=== PATIENT | male | born 1955 | race Caucasian/White ===

== ENCOUNTER → 2016-07-16 | Outpatient (CLI) | payer OTHER ==
[~2016-07-16] MED LIST: ASP81CT PO; CATHETER FLUSH 10 ML SYR IV PRN; DICY20TA57 PO; GENT3.5O18 OS; IOHEXOL 350 MG/ML 150 ML (OMNIPAQUE 350) VIAL IV ONE; NS 100 ML (IVPB) BAG IV ONE; SIMV40TA2 PO; SMV20T PO
[2016-07-16 08:20] LABS: BLOOD UREA NITROGEN 16 MG/DL (7-18); BUN/CREATININE RATIO 19; CREATININE SERUM 0.84 MG/DL (0.60-1.30); GFR ESTIMATED > 60
--- NOTE | 2016-07-16 10:47 | Diagnostic Imaging Report ---
PROCEDURE: CT angiography of the chest with contrast. TECHNIQUE: Multiple contiguous axial images were obtained through the chest after uneventful bolus administration of intravenous contrast. Reconstructed CTA MIP acquisitions were also performed. INDICATION: History of ascending aortic aneurysm. TECHNIQUE: 125 mL 350 is administered intravenously. COMPARISON: 09/13/2014. FINDINGS: There is an ascending aortic aneurysm with a maximum caliber of 4.5 cm. There is transition to normal caliber in the aortic arch and normal caliber seen in the descending thoracic aorta. The aortic root is also dilated measuring 4.8 cm in the coronal plane and is similar to the previous exam. The thoracic aorta otherwise demonstrates normal opacification with no dissection and the great vessels appear unremarkable. The pulmonary artery demonstrates central opacification that appears normal. There is only mild opacification of the more distal pulmonary artery branches with no obvious abnormality. The heart size is normal. There is no mediastinal mass. There is no lymphadenopathy in the mediastinum, the gerry or the axilla. The lungs demonstrate no significant consolidation, mass or suspicious nodule. There is minimal atelectasis seen in the left lung base. Sections in the upper abdomen demonstrate no significant abnormality. The osseous structures appear grossly unremarkable. IMPRESSION: Stable ascending aortic aneurysm from September 2014 measuring 4.5 cm in the mid ascending aorta and 4.8 cm at the aortic root. Dictated by: Dictated on workstation # [id number]
== END ==
LOC: RAD 07:55
PROVIDERS: ATTEND Physician Assistant
DX: I25.10 Atherosclerotic heart disease of native coronary artery without angina pectoris (principal); R07.89 Other chest pain; I77.89 Other specified disorders of arteries and arterioles; E78.2 Mixed hyperlipidemia; E66.8 Other obesity; I71.2 Thoracic aortic aneurysm, without rupture
CPT/HCPCS: 36415; 71275; 82565; 84520

== ENCOUNTER 2016-09-13 03:09 | Observation (INO) | payer OTHER ==
[~2016-09-13] VITALS: Ht 175.3 cm; Wt 101.4 kg
[2016-09-13] VITALS (7 sets, daily range): BP systolic 132–145; BP diastolic 79–89
[~2016-09-13 03:09] MED LIST changes: -CATHETER FLUSH 10 ML SYR IV PRN; -IOHEXOL 350 MG/ML 150 ML (OMNIPAQUE 350) VIAL IV ONE; -NS 100 ML (IVPB) BAG IV ONE
[2016-09-13] MEDS ORDERED: RX-NITROGLYCERIN 0.4 MG TAB BTL 25'S SL ONE (03:10)
[2016-09-13] MEDS ORDERED: ASPIRIN 81 MG CHEW (CHILDREN'S ASA) ONE (03:10)
[2016-09-13 03:29] LABS: BASOPHILS % (AUTO) 0 % (0-10); EOSINOPHILS # (AUTO) 0.2 10^3/uL (0.0-0.3); EOSINOPHILS % (AUTO) 3 % (0-10); LYMPHOCYTES # (AUTO) 2.8 X 10^3 (1.0-4.0); LYMPHOCYTES % (AUTO) 46 % (12-44); MEAN CORPUSCULAR HEMOGLOBIN 30 PG (25-34); MEAN CORPUSCULAR HGB CONC 33 G/DL (32-36); MEAN CORPUSCULAR VOLUME 91 FL (80-99); MEAN PLATELET VOLUME 10.4 FL (7.4-10.4); MONOCYTES # (AUTO) 0.5 X 10^3 (0.0-1.0); MONOCYTES % (AUTO) 7 % (0-12); NEUTROPHILS # (AUTO) 2.7 X 10^3 (1.8-7.8); NEUTROPHILS % (AUTO) 44 % (42-75); PLATELET COUNT 182 10^3/uL (130-400); RED BLOOD COUNT 4.96 10^6/uL (4.35-5.85); RED CELL DISTRIBUTION WIDTH 12.6 % (10.0-14.5); WHITE BLOOD COUNT 6.2 10^3/uL (4.3-11.0)
[2016-09-13] MEDS ORDERED: RX-NITROGLYCERIN 0.4 MG TAB BTL 25'S SL PRN (03:30)
[2016-09-13] MEDS ORDERED: ASPIRIN 81 MG CHEW (CHILDREN'S ASA) PO ONE (03:30)
--- NOTE | 2016-09-13 03:41 | ED Chest Pain ---
General Stated Complaint: CP Source: patient Exam Limitations: no limitations History of Present Illness Time seen by provider: 03:13 Initial Comments Here with report of chest pain that started at about 1030 p.m. last night but got a little better and he went to bed. About a half hour ago he woke up with central chest pain that radiates to the left shoulder and is moderate in intensity. It is associated with clamminess and shortness of breath. Denies nausea or vomiting. Timing/Duration: 4-6 hours, getting worse, intermittent Severity/Quality: moderate, severe, pressure Location: central Radiation: shoulders (left) Activities at Onset: none Prior CP/Workup: cardiac cath, echocardiography, stress test ASA po UMBRELLA REPAIRER: No NTG SL UMBRELLA REPAIRER: No Associated Symptoms: No abdominal pain, No back pain, diaphoresis, No nausea/ vomiting, shortness of breath, No weakness Allergies and Home Medications Allergies Coded Allergies: No Known Drug Allergies (Unverified , 10/07/08) Home Medications Aspirin 81 Mg Chew, 81 MG PO DAILY, (Reported) Gentamicin Sulfate 3.5 Gm Oint..gm., 0 OS Q4H, #1 Ref 0 Prescribed by: SANNA HOSKINS on 12/10/10 0239 Simvastatin 40 Mg Tablet, 40 MG PO HS, (Reported) Review of Systems Constitutional: see HPI, No chills, No fever Respiratory: See HPI, Denies Wheezing Cardiovascular: Chest Pain, Denies Edema, Denies Lightheadedness Gastrointestinal: Denies Abdominal Pain, Nausea, Denies Vomiting Genitourinary: No Symptoms Reported Musculoskeletal: no symptoms reported Skin: no symptoms reported All Other Systems Reviewed Negative Unless Noted: Yes Past Thyqfwj-Ayofyt-Susdlx Hx Patient Social History Alcohol Use: Denies Use Recreational Drug Use: No (9 spoke) Smoking Status: Never a Smoker Surgeries HX Surgeries: Yes Surgeries: Coronary Stent Respiratory Hx Respiratory Disorders: No Cardiovascular Hx Cardiac Disorders: Yes Cardiac Disorders: Hypertension Neurological Hx Neurological Disorders: No Reproductive System Hx Reproductive Disorders: No Genitourinary Hx Genitourinary Disorders: No Gastrointestinal Hx Gastrointestinal Disorders: No Musculoskeletal Hx Musculoskeletal Disorders: No Endocrine Hx Endocrine Disorders: No HEENT HX ENT Disorders: No Psychosocial Hx Psychiatric Problems: No Blood Transfusions Hx Blood Disorders: No Reviewed Nursing Assessment Reviewed/Agree w Nursing PMH: Yes Family Medical History Significant Family History: No Pertinent Family Hx Physical Exam Vital Signs Vital Sign - Last 12Hours 09/13/16 03:10 Temp 96.5 Pulse 73 Resp 20 B/P (MAP) 167/118 Pulse Ox 96 O2 Delivery Room Air Capillary Refill : General Appearance: WD/WN, Mild Distress (chest pain) HEENT: PERRL/EOMI, Pharynx Normal Neck: Non Tender, Supple Respiratory: Lungs Clear, Normal Breath Sounds Cardiovascular: Regular Rate, Rhythm, No Murmur Gastrointestinal: Non Tender, Soft Extremity: Normal Range of Motion, Non Tender Neurologic/Psychiatric: Alert, Oriented x3 Skin: Normal Color, Warm/Dry Progress/Results/Core Measures Results/Orders Lab Results Laboratory Tests Test 09/13/16 03:17 Range/Units White Blood Count 6.2 4.3-11.0 10^3/uL Red Blood Count 4.96 4.35-5.85 10^6/uL Hemoglobin 15.0 13.3-17.7 G/DL Hematocrit 45 40-54 % Mean Corpuscular Volume 91 80-99 FL Mean Corpuscular Hemoglobin 30 25-34 PG Mean Corpuscular Hemoglobin Concent 33 32-36 G/DL Red Cell Distribution Width 12.6 10.0-14.5 % Platelet Count 182 130-400 10^3/uL Mean Platelet Volume 10.4 7.4-10.4 FL Neutrophils (%) (Auto) 44 42-75 % Lymphocytes (%) (Auto) 46 H 12-44 % Monocytes (%) (Auto) 7 0-12 % Eosinophils (%) (Auto) 3 0-10 % Basophils (%) (Auto) 0 0-10 % Neutrophils # (Auto) 2.7 1.8-7.8 X 10^3 Lymphocytes # (Auto) 2.8 1.0-4.0 X 10^3 Monocytes # (Auto) 0.5 0.0-1.0 X 10^3 Eosinophils # (Auto) 0.2 0.0-0.3 10^3/uL Basophils # (Auto) 0.0 0.0-0.1 10^3/uL Prothrombin Time 12.5 12.2-14.7 SEC INR Comment 1.0 0.8-1.4 Activated Partial Thromboplast Time 46 H 24-35 SEC Sodium Level 140 135-145 MMOL/L Potassium Level 4.3 3.6-5.0 MMOL/L Chloride Level 105 98-107 MMOL/L Carbon Dioxide Level 23 21-32 MMOL/L Anion Gap 12 5-14 MMOL/L Blood Urea Nitrogen 17 7-18 MG/DL Creatinine 1.19 0.60-1.30 MG/DL Estimat Glomerular Filtration Rate > 60 BUN/Creatinine Ratio 14 Glucose Level 135 H 70-105 MG/DL Calcium Level 8.9 8.5-10.1 MG/DL Magnesium Level 2.1 1.8-2.4 MG/DL Total Bilirubin 0.6 0.1-1.0 MG/DL Aspartate Amino Transf (AST/SGOT) 24 5-34 U/L Alanine Aminotransferase (ALT/SGPT) 37 0-55 U/L Alkaline Phosphatase 77 40-136 U/L Myoglobin 21.9 10.0-92.0 NG/ML Troponin I < 0.30 <0.30 NG/ML Total Protein 6.2 L 6.4-8.2 G/DL Albumin 4.1 3.2-4.5 G/DL My Orders Orders - FERNANDEZ MCKEON MD Aspirin Chewable Tablet (Baby Aspirin Ch (09/13/16 03:10) Rx-Nitroglycerin Sl Tabs (Rx-Nitrostat S (09/13/16 03:10) Cbc With Automated Diff (09/13/16 03:20) Magnesium (09/13/16 03:20) Chest 1 View, Ap/Pa Only (09/13/16 03:20) Ekg Tracing (09/13/16 03:20) Cardiac Profile 1 (09/13/16 03:20) Comprehensive Metabolic Panel (09/13/16 03:20) Myoglobin Serum (09/13/16 03:20) Protime With Inr (09/13/16 03:20) Partial Thromboplastin Time (09/13/16 03:20) O2 (09/13/16 03:20) Monitor-Rhythm Ecg Trace Only (09/13/16 03:20) Lipid Panel (09/14/16 06:00) Aspirin Chewable Tablet (Baby Aspirin Ch (09/13/16 03:30) Rx-Nitroglycerin Sl Tabs (Rx-Nitrostat S (09/13/16 03:30) Saline Lock/Iv-Start (09/13/16 03:20) Medications Given in ED Current Medications Medications Dose Ordered Sig/Daniel Route Start Time Stop Time Status Last Admin Dose Admin Aspirin 324 mg ONCE ONCE PO 09/13/16 03:30 09/13/16 03:31 DC 09/13/16 03:14 324 MG Nitroglycerin 0.4 mg PRN PRN SL 09/13/16 03:30 09/13/16 03:17 0.4 MG Vital Signs/I&O Vital Sign - Last 12Hours 09/13/16 09/13/16 03:10 03:10 Temp 96.5 Pulse 73 Resp 20 B/P (MAP) 167/118 Pulse Ox 96 O2 Delivery Room Air Room Air Progress Note : Progress Note Seen and evaluated. IV, labs, EKG and chest x-ray. ASA 324 mg by mouth. Nitroglycerin sublingual. Pain resolved after 2 nitroglycerin. Monitor patient. [id number] Farias. Admit, observation status. Patient and family agree with plan. Patient was very appreciative of admission as he was quite concerned due to the chest pain. ECG Initial ECG Impression Date: Sep 13, 2016 Initial ECG Impression Time: 03:16 Initial ECG Rate: 77 Initial ECG Rhythm: Normal Sinus Comment Sinus rhythm with first-degree AV block. No evidence of ST elevation MO. Overall similar findings to previous of 07/26/14. Interpreted by me. Departure Communication Time/Spoke to Admitting Phy: 04:44 Time/Spoke to Consulting Physi: 05:00 Impression Impression: Primary Impression: Chest pain Qualified Codes: R07.9 - Chest pain, unspecified Disposition: 09 ADMITTED INPATIENT Condition: Stable Decision to Admit Reason: Admit from ER (General) Decision to Admit/Date: Sep 13, 2016 Time/Decision to Admit Time: 04:44 Departure-Patient Inst. Referrals: JESSENIA HARDWICK MD (PCP) Primary Care Physician FERNANDEZ MCKEON MD Sep 13, 2016 03:41
[2016-09-13 03:44] LABS: PROTHROMBIN TIME PATIENT 12.5 SEC (12.2-14.7)
[2016-09-13 03:56] LABS: ALANINE AMINOTRANSFERASE 37 U/L (0-55); ALBUMIN 4.1 G/DL (3.2-4.5); ASPARTATE AMINO TRANSFERASE 24 U/L (5-34); BILIRUBIN,TOTAL 0.6 MG/DL (0.1-1.0); BLOOD UREA NITROGEN 17 MG/DL (7-18); BUN/CREATININE RATIO 14; CALCIUM 8.9 MG/DL (8.5-10.1); CARBON DIOXIDE 23 MMOL/L (21-32); CREATININE SERUM 1.19 MG/DL (0.60-1.30); GFR ESTIMATED > 60; GLUCOSE 135 MG/DL (70-105); TOTAL PROTEIN 6.2 G/DL (6.4-8.2)
[2016-09-13 04:04] LABS: ANION GAP 12 MMOL/L (5-14); CHLORIDE 105 MMOL/L (98-107); MAGNESIUM 2.1 MG/DL (1.8-2.4); POTASSIUM 4.3 MMOL/L (3.6-5.0); SODIUM 140 MMOL/L (135-145)
[2016-09-13 04:07] LABS: MYOGLOBIN SERUM 21.9 NG/ML (10.0-92.0)
[2016-09-13] MEDS ORDERED: NS IV 1000 ML 1,000 ML IV SCH (05:41)
[2016-09-13] MEDS ORDERED: PATIENT MAY USE OWN MEDS, ALL PO SCH (05:45)
[2016-09-13] MEDS ORDERED: morphine INJ 10 MG/ML 1ML (SYR OR VIAL) IVP PRN (05:45)
[2016-09-13] MEDS ORDERED: NITROGLYCERIN SUBLINGUAL 0.4 MG TAB (NITROSTAT) SL PRN (05:45)
--- NOTE | 2016-09-13 07:38 | Diagnostic Imaging Report ---
INDICATION: Chest pain COMPARISON: CT chest dated 07/16/2016 FINDINGS: Single frontal view of the chest demonstrates normal heart size and pulmonary vascularity. The lungs are well aerated and clear. No large pleural effusion or pneumothorax is seen. The visualized osseous structures show no acute abnormalities. IMPRESSION: 1. No acute cardiopulmonary process. Dictated by: Dictated on workstation # [id number]
--- NOTE | 2016-09-13 08:46 | Consultation-Cardiology ---
HPI-Cardiology Cardiology Consultation Date of Consultation 09/13/16 Date of Admission Time Seen by Provider: 08:41 Indication: chest pain HPI 61 years old gentleman with history of hypertension, family history of heart disease, woke up early in the morning with sudden onset of retrosternal chest pain described it as achiness in the retrosternal area radiating to the left side and left shoulder and arm. He denied any palpitation, syncope or near syncopal episodes. Denied any claudication. Patient is feeling better, reporting improvement of his chest pain after receiving one sublingual nitroglycerin, had some headache which has resolved at this point Home Medications & Allergies Allergies: Coded Allergies: No Known Drug Allergies (Unverified , 10/07/08) Home Medication List Reviewed: Yes FXW-Jivuih-Qnkwoe Hx Patient Social History Marital Status: Alcohol Use: Denies Use Recreational Drug Use: No (9 spoke) Smoking Status: Never a Smoker Recent Foreign Travel: No Recent Infectious Disease Expo: No Recent Hopitalizations: No Physical Abuse Screen: No Sexual Abuse: No Past Medical History past medical history as discussed below Family Medical History Significant Family History: No Pertinent Family Hx Family History: 19 FATHER Cardiovascular disease 19 MOTHER FH: breast cancer G8 SISTER Diabetes mellitus Hypertension G8 SISTER Diabetes mellitus G8 SISTER Diabetes mellitus Constitutional: no symptoms reported, see HPI EENTM: no symptoms reported, see HPI Respiratory: see HPI, No cough, No dyspnea on exertion, No hemoptysis, No orthopnea, No phlegm, No short of breath, No stridor, No wheezing, No other Cardiovascular: see HPI, chest pain, No edema, No Hx of Intervention, No palpitations, No syncope, No vascular heart diseas, No other Gastrointestinal: no symptoms reported, see HPI Genitourinary: no symptoms reported, see HPI Musculoskeletal: no symptoms reported, see HPI Skin: no symptoms reported, see HPI Psychiatric/Neurological: No Symptoms Reported, See HPI Reviewed Test Results Reviewed Test Results Lab Laboratory Tests Test 09/13/16 03:17 Range/Units White Blood Count 6.2 4.3-11.0 10^3/uL Red Blood Count 4.96 4.35-5.85 10^6/uL Hemoglobin 15.0 13.3-17.7 G/DL Hematocrit 45 40-54 % Mean Corpuscular Volume 91 80-99 FL Mean Corpuscular Hemoglobin 30 25-34 PG Mean Corpuscular Hemoglobin Concent 33 32-36 G/DL Red Cell Distribution Width 12.6 10.0-14.5 % Platelet Count 182 130-400 10^3/uL Mean Platelet Volume 10.4 7.4-10.4 FL Neutrophils (%) (Auto) 44 42-75 % Lymphocytes (%) (Auto) 46 H 12-44 % Monocytes (%) (Auto) 7 0-12 % Eosinophils (%) (Auto) 3 0-10 % Basophils (%) (Auto) 0 0-10 % Neutrophils # (Auto) 2.7 1.8-7.8 X 10^3 Lymphocytes # (Auto) 2.8 1.0-4.0 X 10^3 Monocytes # (Auto) 0.5 0.0-1.0 X 10^3 Eosinophils # (Auto) 0.2 0.0-0.3 10^3/uL Basophils # (Auto) 0.0 0.0-0.1 10^3/uL Prothrombin Time 12.5 12.2-14.7 SEC INR Comment 1.0 0.8-1.4 Activated Partial Thromboplast Time 46 H 24-35 SEC Sodium Level 140 135-145 MMOL/L Potassium Level 4.3 3.6-5.0 MMOL/L Chloride Level 105 98-107 MMOL/L Carbon Dioxide Level 23 21-32 MMOL/L Anion Gap 12 5-14 MMOL/L Blood Urea Nitrogen 17 7-18 MG/DL Creatinine 1.19 0.60-1.30 MG/DL Estimat Glomerular Filtration Rate > 60 BUN/Creatinine Ratio 14 Glucose Level 135 H 70-105 MG/DL Calcium Level 8.9 8.5-10.1 MG/DL Magnesium Level 2.1 1.8-2.4 MG/DL Total Bilirubin 0.6 0.1-1.0 MG/DL Aspartate Amino Transf (AST/SGOT) 24 5-34 U/L Alanine Aminotransferase (ALT/SGPT) 37 0-55 U/L Alkaline Phosphatase 77 40-136 U/L Myoglobin 21.9 10.0-92.0 NG/ML Troponin I < 0.30 <0.30 NG/ML Total Protein 6.2 L 6.4-8.2 G/DL Albumin 4.1 3.2-4.5 G/DL Physical Exam Vital Signs Vital Sign - Last 12Hours 09/13/16 03:10 Temp 96.5 Pulse 73 Resp 20 B/P (MAP) 167/118 Pulse Ox 96 O2 Delivery Room Air Capillary Refill : Less Than 3 Seconds General Appearance: No Apparent Distress, WD/WN Eyes: Bilateral Eye EOMI, Bilateral Eye Normal Inspection, Bilateral Eye PERRL HEENT: PERRL/EOMI, TMs Normal, Normal ENT Inspection, Pharynx Normal Neck: Full Range of Motion, Normal Inspection, Non Tender, Supple, Carotid Bruit Respiratory: Chest Non Tender, Lungs Clear, Normal Breath Sounds, No Accessory Muscle Use, No Respiratory Distress Cardiovascular: Regular Rate, Rhythm, No Edema, No Gallop, No JVD, No Murmur, Normal Peripheral Pulses Gastrointestinal: Normal Bowel Sounds, No Organomegaly, No Pulsatile Mass, Non Tender, Soft Back: Normal Inspection, No CVA Tenderness, No Vertebral Tenderness Extremity: Normal Capillary Refill, Normal Inspection, Normal Range of Motion, Non Tender, No Calf Tenderness, No Pedal Edema Neurologic/Psychiatric: Alert, Oriented x3, No Motor/Sensory Deficits, Normal Mood/Affect Skin: Normal Color, Warm/Dry Lymphatic: No Adenopathy A/P-Cardiology Admission Diagnosis Chest pain nonspecific etiology Hypertension Headache Family history of heart disease Assessment/Plan Chest pain nonspecific etiology, resolved, responded to nitroglycerin, patient had a cardiac catheterization 2010 reported as minor disease, had a stress test in September 2014 which was normal, I will continue monitoring him and planning for exercise stress test today. Hypertension, blood pressure is well controlled at this time Hyperlipidemia, has been on simvastatin. Continue to monitor Headache. Reporting improvement. Family history of heart disease. Clinical Quality Measures AMI/AHF: ASA po Prior to arrival: No DVT/VTE Risk/Contraindication: Risk Factor Score Per Nursin RFS Level Per Nursing on Admit: 3=High JESSENIA HARDWICK MD Sep 13, 2016 08:46
[2016-09-13 09:34] LABS: CREATINE KINASE 58 U/L (30-200)
[2016-09-13 09:38] LABS: CHOLESTEROL 183 MG/DL (< 200); DIRECT LDL 77 MG/DL (1-129); TRIGLYCERIDES 152 MG/DL (<150); VLDL CHOLESTEROL 30 MG/DL (5-40)
--- NOTE | 2016-09-13 11:09 | Short Stay Summary-Hospitalist ---
HPI History of Present Illness: HPI/Chief Complaint The patient is a 61-year-old white male who was admitted from the emergency room at approximately 0300 this morning with a chief complaint of mid chest pressure. The patient reported that He had felt ill in a nonspecific sort of mild way as he went to bed about 1030. He was awakened from sleep with chest pressure and diaphoresis. He was unaware of any fever. There is no cough. He had a previous workup elsewhere in approximately 2013. This was stated to be negative. He has a family history of early heart disease and his father at age 59 after multiple myocardial infarctions. He has never smoked. Rarely takes alcohol. He reports that he is known to have an elevation in the bad cholesterol. He has not been hypertensive. Source: patient Exam Limitations: no limitations Date Seen 09/13/16 Time Seen by Provider: 11:04 Attending Physician Anastacia PCP Referring Physician Date of Admission Sep 13, 2016 at 05:05 Home Medications & Allergies Home Medications Reviewed patient Home Medication Reconciliation Form Allergies Allergies Coded Allergies No Known Drug Allergies (Unverified10/07/08) Past Wxorwtf-Onfgbw-Bbyovd Hx Patient Social History Marrital Status: Alcohol Use: Denies Use Recreational Drug Use: No (9 spoke) Smoking Status: Never a Smoker Physical Abuse Screen: No Sexual Abuse: No Recent Foreign Travel: No Contact w/other who traveled: No Recent Hopitalizations: No Recent Infectious Disease Expo: No Seasonal Allergies Seasonal Allergies: No Surgeries HX Surgeries: Yes Surgeries: Coronary Stent Respiratory Hx Respiratory Disorders: No Cardiovascular Hx Cardiovascular Disorders: Yes Cardiac Disorders: Hypertension Neurological Hx Neurological Disorders: No Reproductive System Hx Reproductive Disorders: No Genitourinary Hx Genitourinary Disorders: No Gastrointestinal Hx Gastrointestinal Disorders: No Musculoskeletal Hx Musculoskeletal Disorders: No Endocrine Hx Endocrine Disorders: No HEENT HX ENT Disorders: No Psychosocial Hx Psychiatric Problems: No Blood Transfusions Hx Blood Disorders: No Reviewed Nursing Assessment Reviewed/Agree w Nursing PMH: Yes Family Medical History Significant Family History: No Pertinent Family Hx Family Hx: Cardiovascular disease 19 FATHER Diabetes mellitus G8 SISTER G8 SISTER G8 SISTER FH: breast cancer 19 MOTHER Hypertension G8 SISTER Review of Systems Time Seen by Provider: 10:55 Constitutional: see HPI EENTM: no symptoms reported Cardiovascular: see HPI, chest pain Gastrointestinal: no symptoms reported Genitourinary: no symptoms reported Musculoskeletal: no symptoms reported Skin: other Psychiatric/Neurological: No Symptoms Reported Physical Exam Physical Exam Vital Signs Vital Sign - Last 12Hours 09/13/16 03:10 Temp 96.5 Pulse 73 Resp 20 B/P (MAP) 167/118 Pulse Ox 96 O2 Delivery Room Air Capillary Refill : Less Than 3 Seconds General Appearance: No Apparent Distress, WD/WN Eyes: Bilateral Eye Normal Inspection HEENT: Normal ENT Inspection Neck: Normal Inspection Respiratory: Chest Non Tender, Lungs Clear, Normal Breath Sounds, No Accessory Muscle Use, No Respiratory Distress Cardiovascular: Regular Rate, Rhythm, No Edema, No Gallop, No JVD, No Murmur, Normal Peripheral Pulses Back: Normal Inspection, No CVA Tenderness, No Vertebral Tenderness Extremity: Normal Capillary Refill, Normal Inspection, Normal Range of Motion, Non Tender, No Calf Tenderness, No Pedal Edema Neurologic/Psychiatric: Alert, Oriented x3, No Motor/Sensory Deficits, Normal Mood/Affect Skin: Normal Color, Warm/Dry Lymphatic: No Adenopathy Comments Multiple rubbery subcutaneous nodules consistent with lipomata are noted on the forearms and belly Results Results/Procedures Lab Laboratory Tests 09/13/16 03:17 Short Stay Diagnosis Discharge Diagnosis-Short Stay Admission Diagnosis Chest pain rule out [place]. Final Discharge Diagnosis Chest pain not myocardial Conclusion Plan Discharge home. Return to work tomorrow. Clinical Quality Measures AMI/AHF: ASA po Prior to arrival: No DVT/VTE Risk/Contraindication: Risk Factor Score Per Nursin RFS Level Per Nursing on Admit: 3=High FRANK FAIR MD Sep 13, 2016 11:09
--- NOTE | 2016-09-13 11:14 | Discharge Instructions ---
Discharge Instructions Patient Instructions Goal/Follow Up Appt: Medications as on the discharge list Return to work tomorrow [facility] to [facility]: If recurrence of pain Activity & Diet Discharge Diet: Cardiac Diet Activity as Tolerated: Yes FRANK FAIR MD Sep 13, 2016 11:14
--- NOTE | 2016-09-13 11:56 | STRESS TEST ---
DATE OF SERVICE: 09/13/2016 EXERCISE STRESS ECHOCARDIOGRAM REFERRING PHYSICIAN: Dr. Farias INDICATION: Chest pain. FINDINGS: Baseline heart rate is 72. Baseline blood pressure 149/84. Baseline EKG is sinus rhythm with no ischemic changes. SUMMARY: The patient started exercising with the baseline heart rate, blood pressure and EKG mentioned above. Then, the patient was able to exercise for a total of 6 minutes and 30 seconds on standard Gregg protocol, achieving maximum heart rate of 137, which is 86% of maximum expected heart rate. With peak exercise level blood pressure was 233/89. EKG was showing minimal nondiagnostic changes. During recovery, heart rate and blood pressure returned to baseline. EKG returned to baseline. Echocardiographic images were acquired after injection of Optison for better resolution. It was reviewed in the parasternal long axis and parasternal short axis, apical four chamber and apical two chamber views. Review of the images showed normal left ventricular size with normal contractility with no ischemic changes. CONCLUSION: 1. Fair exercise tolerance a total of 6 minutes 30 seconds on standard Gregg protocol achieving 86% of maximum expected heart rate. 2. Appropriate heart rate and blood pressure response to exercise, returned to baseline during recovery. 3. Severe hypertensive response to exercise, returned to baseline during recovery. 4. Normal echocardiographic images at rest and with peak stress level. No ischemic changes with normal ejection fraction. Job ID: [id number] DocumentID: [id number] Dictated Date: 09/13/2016 11:19:20 [employer] Date: 09/13/2016 11:44:28 Dictated By: JESSENIA HARDWICK MD
--- NOTE | 2016-09-13 13:24 | ECHOCARDIOGRAPHY REPORT ---
DATE OF SERVICE: 09/13/2016 2-D ECHOCARDIOGRAM REFERRING PHYSICIAN: Dr. Partha Farias MEASUREMENT: LVID end diastolic 4.5, IVS thickness 1.2, LVPW thickness 1.2 cm, left atrial diameter 3.4 and ejection fraction 60%. FINDINGS: 1. Technical quality is good. 2. The left ventricle is normal in size with normal contractility, systolic function appeared to be normal, estimated ejection fraction 60%. 3. The left atrium is normal in size. No clot or thrombus were seen within the left atrium. 4. The right atrium and right ventricle are normal in size. No clot or thrombus were seen within the right side. 5. Mitral valve is normal in morphology with mild mitral regurgitation noted by color Doppler flow. No mitral valve prolapse. No mitral valve stenosis. 6. Aortic valve is trileaflet with normal opening and closing pattern. No significant aortic stenosis or regurgitation was seen. 7. Tricuspid valve is normal in morphology with mild tricuspid regurgitation noted by color Doppler flow. Doppler across the tricuspid valve estimated pulmonary artery pressure of 12+ right atrial pressure. 8. Pulmonic valve is functioning normally. 9. No pericardial effusion. CONCLUSION: 1. Normal left ventricular size and systolic function. Estimated ejection fraction 60%. 2. Mild mitral and tricuspid regurgitation. 3. Estimated pulmonary artery pressure of 20 mmHg. Job ID: [id number] DocumentID: [id number] Dictated Date: 09/13/2016 11:15:20 Doctor Of Nurse Anesthesia Date: 09/13/2016 12:17:12 Dictated By: JESSENIA HARDWICK MD
[2016-09-14] MEDS ORDERED: ASPIRIN E.C. 325 MG (ECOTRIN) TABLET PO SCH (09:00)
== END 2016-09-13 11:13 | disposition home or self-care (01) ==
LOC: EDUNIT# 03:09 → ER 03:10 → UNDOADMOB 05:05 → 4TH 05:05 → UNDODISOB 11:55
PROVIDERS: ADMIT Internal Medicine; ATTEND Internal Medicine
DX: R07.9 Chest pain, unspecified (principal); I10 Essential (primary) hypertension; E78.5 Hyperlipidemia, unspecified; R51 Headache; Z82.49 Family history of ischemic heart disease and other diseases of the circulatory system; I44.0 Atrioventricular block, first degree; Z95.5 Presence of coronary angioplasty implant and graft
CPT/HCPCS: 36415; 71010; 80053; 80061; 82550; 83735; 83874; 84484; 85025; 85610; 85730; 93005; 93041; 93306; G0378

== ENCOUNTER → 2017-05-18 | Outpatient (CLI) | payer OTHER ==
[~2017-05-18] MED LIST changes: +ASPI-983 PO; +DEXA4TAB PO; +METO-370 PO; +RT-ALBUTEROL SULF 2.5 MG/3 ML PRE-MIX VIAL INH ONE; +SIMV40TA4 PO
== END ==
LOC: RT 07:59
PROVIDERS: ATTEND Family Medicine
DX: R05 Cough (principal)
CPT/HCPCS: 94060; 94726

== ENCOUNTER → 2017-06-14 | Outpatient (CLI) | payer OTHER ==
[~2017-06-14] MED LIST changes: -RT-ALBUTEROL SULF 2.5 MG/3 ML PRE-MIX VIAL INH ONE
[2017-06-14 10:19] LABS: CHOLESTEROL 162 MG/DL (< 200); HDL CHOLESTEROL 46 MG/DL (40-60); TRIGLYCERIDES 142 MG/DL (<150); VLDL CHOLESTEROL 28 MG/DL (5-40)
== END ==
LOC: LAB 09:46
PROVIDERS: ATTEND Internal Medicine Cardiovascular Disease
DX: I25.10 Atherosclerotic heart disease of native coronary artery without angina pectoris (principal); R07.9 Chest pain, unspecified; E78.5 Hyperlipidemia, unspecified; E66.9 Obesity, unspecified
CPT/HCPCS: 36415; 80061

== ENCOUNTER 2020-08-02 13:09 | Emergency (ER) | payer SELFPAY ==
[~2020-08-02] VITALS: Ht 175 cm; Wt 94.8 kg
[~2020-08-02 13:09] MED LIST changes: +ASPI-1238 PO; -ASPI-983 PO; -METO-370 PO; +METO50TA7 PO; +SIMV40TA25 PO; -SIMV40TA4 PO
[2020-08-02] MEDS ORDERED: NS IV 1000 ML 1,000 ML ONE (13:24)
[2020-08-02] MEDS ORDERED: RX-ALBUTEROL INHALER (VENTOLIN HFA) 18 GM IH ONE (13:29)
[2020-08-02] MEDS ORDERED: LOPERAMIDE 2 MG (IMODIUM) TABLET ONE ×2 (13:29→13:31)
[2020-08-02] MEDS ORDERED: LOPERAMIDE 2 MG (IMODIUM) TABLET PO ONE ×2 (13:45)
[2020-08-02] MEDS ORDERED: RT-ALBUTEROL INHALER HFA (VENTOLIN HFA) 18 GM IH ONE (13:45)
[2020-08-02 14:05] LABS: BASOPHILS % (AUTO) 0 % (0-10); EOSINOPHILS % (AUTO) 0 % (0-10); HEMATOCRIT 48 % (40-54); HEMOGLOBIN 16.3 g/dL (13.3-17.7); LYMPHOCYTES # (AUTO) 0.9 10^3/uL (1.0-4.0); LYMPHOCYTES % (AUTO) 18 % (12-44); MEAN CORPUSCULAR HEMOGLOBIN 31 pg (25-34); MEAN CORPUSCULAR HGB CONC 34 g/dL (32-36); MEAN CORPUSCULAR VOLUME 92 fL (80-99); MONOCYTES # (AUTO) 0.4 10^3/uL (0.0-1.0); MONOCYTES % (AUTO) 8 % (0-12); NEUTROPHILS # (AUTO) 3.9 10^3/uL (1.8-7.8); NEUTROPHILS % (AUTO) 74 % (42-75); PLATELET COUNT 180 10^3/uL (130-400); WHITE BLOOD COUNT 5.2 10^3/uL (4.3-11.0)
[2020-08-02 14:17] LABS: ALBUMIN 4.4 GM/DL (3.2-4.5)
[2020-08-02 14:18] LABS: CHLORIDE 99 MMOL/L (98-107); POTASSIUM 4.3 MMOL/L (3.6-5.0); SODIUM 137 MMOL/L (135-145)
[2020-08-02 14:20] LABS: GLUCOSE 158 MG/DL (70-105)
[2020-08-02 14:21] LABS: CARBON DIOXIDE 25 MMOL/L (21-32)
[2020-08-02 14:24] LABS: ALKALINE PHOSPHATASE 89 U/L (40-136); CREATININE SERUM 1.03 MG/DL (0.60-1.30); GFR ESTIMATED > 60
[2020-08-02 14:25] LABS: BUN/CREATININE RATIO 12
[2020-08-02 14:27] LABS: ALANINE AMINOTRANSFERASE 39 U/L (0-55)
[2020-08-02] MEDS ORDERED: BENZONATATE 100 MG (TESSALON) CAPSULE PO ONE (14:45)
--- NOTE | 2020-08-02 14:58 | Diagnostic Imaging Report ---
Indication: Dyspnea with chills and generalized malaise. Comparison: 05/08/2017. Discussion: Single portable upright view of the chest was obtained. Pleural thickening or scarring within the left lung base is stable. Normal heart size. No consolidation, pleural fluid, or pneumothorax identified. No osseous abnormality. Impression: 1. Negative portable chest. Dictated by: Dictated on workstation # [id number]
[2020-08-02] MEDS ORDERED: NS 100 ML (IVPB) BAG IV ONE (15:15)
[2020-08-02] MEDS ORDERED: HOLD METFORMIN - RECEIVED CONTRAST 20 ML VIAL IV SCH (15:15)
[2020-08-02] MEDS ORDERED: IOHEXOL 350 MG/ML 100 ML (OMNIPAQUE 350) VIAL IV ONE (15:15)
--- NOTE | 2020-08-02 15:44 | Diagnostic Imaging Report ---
Procedure: CT angiography of the chest with contrast. Technique: Multiple contiguous axial images were obtained through the chest after uneventful bolus administration of intravenous contrast. 3D reconstructed CTA MIP acquisitions were also performed. Auto Exposure Controls were utilized during the CT exam to meet ALARA standards for radiation dose reduction. Indication: Dyspnea. Comparison: 07/16/2016, chest x-ray earlier today. Discussion: Aneurysmal dilatation of the ascending aorta measuring 4.5 cm is stable. No pulmonary embolus identified. Pulmonary arteries are not dilated. Normal heart size. No pleural or pericardial fluid. The visualized upper abdomen is unremarkable. No adenopathy. Atelectasis or patchy infiltrate noted within the periphery of the right upper lobe. Additional groundglass infiltrates within the bilateral lung bases, again atelectasis or pneumonia. No solid pulmonary lesion. No osseous abnormality. Impression: 1. No pulmonary embolus identified. 2. Stable aneurysmal dilatation of the ascending aorta. 3. Scattered foci of groundglass infiltrate within the right upper lobe and bilateral lung bases, early pneumonia not excluded. Dictated by: Dictated on workstation # [id number]
[2020-08-02] MEDS ORDERED: AZITHROMYCIN 250 MG TAB (ZITHROMAX) PO ONE (16:15)
[2020-08-02] MEDS ORDERED: AZIT250T12 PO (16:49)
[2020-08-02] MEDS ORDERED: BENZ100C18 PO (16:49)
--- NOTE | 2020-08-02 16:50 | ED General ---
General Chief Complaint: Respiratory Problems Stated Complaint: COVID + COUGH/CHEST TIGHT, CAN'T TASTE, CLAMMY Nursing Triage Note: PT PRESENTS TO ED VIA POV FROM HOME WITH COMPLAINTS OF SOA, DIAHRREA, CHILLS, MALAISE, AND DECREASED APPETITE. PT REPORTS HE FIRST STARTED GETTING S/S AROUND 07/23 AND WAS DIAGNOSED WITH COVID ON 07/28. Nursing Sepsis Screen: Possible Sepsis Risk Source of Information: Patient Exam Limitations: No Limitations Allergies and Home Medications Allergies Coded Allergies: No Known Drug Allergies (Unverified , 10/07/08) Home Medications Aspirin 81 Mg Tablet.dr, 81 MG PO DAILY, (Reported) Dexamethasone 4 Mg Tablet, 4 MG PO DAILY Prescribed by: BRANDIE LAMB on 05/11/17 0924 Metoprolol Succinate 50 Mg Tab.er.24h, 50 MG PO DAILY, (Reported) Simvastatin 40 Mg Tablet, 40 MG PO DAILY, (Reported) Past Qumgfqw-Bddsfo-Tieuve Hx Patient Social History Alcohol Use: Rarely Uses Smoking Status: Never a Smoker Recent Infectious Disease Expo: No Recent Hopitalizations: No Immunizations Up To Date Tetanus Booster (TDap): Unknown PED Vaccines UTD: No Seasonal Allergies Seasonal Allergies: No Past Medical History Surgeries: Yes Adenoidectomy, Appendectomy, Coronary Stent, Tonsillectomy Respiratory: No Cardiac: Yes (CARDIAC CATH) Hypertension Neurological: No Reproductive Disorders: No Genitourinary: No Gastrointestinal: No Musculoskeletal: No Endocrine: Yes Diabetes, Non-Insulin dep HEENT: No Cancer: No Psychosocial: No Integumentary: No (MULTIPLE FATTY TUMORS) Blood Disorders: No Family Medical History Cardiovascular disease 19 FATHER Diabetes mellitus G8 SISTER G8 SISTER G8 SISTER FH: breast cancer 19 MOTHER Hypertension G8 SISTER No Pertinent Family Hx Physical Exam Vital Signs Vital Signs - First Documented 08/02/20 13:40 Temp 37.9 Pulse 115 Resp 20 B/P (MAP) 155/99 (117) Pulse Ox 95 Capillary Refill : Less Than 3 Seconds Height, Weight, BMI Height: 5'9.00" Weight: 225lbs. 0.0oz. 102.528282li; 30.00 BMI Method:Stated Focused Exam Lactate Level 08/02/20 13:57: Lactic Acid Level 3.13*H Lactic Acid Level Laboratory Tests Test 08/02/20 13:57 Lactic Acid Level 3.13 MMOL/L (0.50-2.00) *H Progress/Results/Core Measures Suspected Sepsis Recent Fever Within 48 Hours: Yes Infection Criteria Present: Suspected New Infection New/Unexplained Altered Menta: No Sepsis Screen: Possible Sepsis Risk SIRS Temperature: Pulse: 115 Respiratory Rate: 20 Laboratory Tests 08/02/20 13:57: White Blood Count 5.2 Blood Pressure 155 /99 Mean: 117 08/02/20 13:57: Lactic Acid Level 3.13*H Laboratory Tests 08/02/20 13:57: Creatinine 1.03, Platelet Count 180, Total Bilirubin 1.0 Results/Orders Lab Results Laboratory Tests Test 08/02/20 13:57 Range/Units White Blood Count 5.2 4.3-11.0 10^3/uL Red Blood Count 5.26 4.30-5.52 10^6/uL Hemoglobin 16.3 13.3-17.7 g/dL Hematocrit 48 40-54 % Mean Corpuscular Volume 92 80-99 fL Mean Corpuscular Hemoglobin 31 25-34 pg Mean Corpuscular Hemoglobin Concent 34 32-36 g/dL Red Cell Distribution Width 11.9 10.0-14.5 % Platelet Count 180 130-400 10^3/uL Mean Platelet Volume 11.0 9.0-12.2 fL Immature Granulocyte % (Auto) 0 % Neutrophils (%) (Auto) 74 42-75 % Lymphocytes (%) (Auto) 18 12-44 % Monocytes (%) (Auto) 8 0-12 % Eosinophils (%) (Auto) 0 0-10 % Basophils (%) (Auto) 0 0-10 % Neutrophils # (Auto) 3.9 1.8-7.8 10^3/uL Lymphocytes # (Auto) 0.9 L 1.0-4.0 10^3/uL Monocytes # (Auto) 0.4 0.0-1.0 10^3/uL Eosinophils # (Auto) 0.0 0.0-0.3 10^3/uL Basophils # (Auto) 0.0 0.0-0.1 10^3/uL Immature Granulocyte # (Auto) 0.0 0.0-0.1 10^3/uL D-Dimer 0.52 H 0.00-0.49 UG/ML Sodium Level 137 135-145 MMOL/L Potassium Level 4.3 3.6-5.0 MMOL/L Chloride Level 99 98-107 MMOL/L Carbon Dioxide Level 25 21-32 MMOL/L Anion Gap 13 5-14 MMOL/L Blood Urea Nitrogen 12 7-18 MG/DL Creatinine 1.03 0.60-1.30 MG/DL Estimat Glomerular Filtration Rate > 60 BUN/Creatinine Ratio 12 Glucose Level 158 H 70-105 MG/DL Lactic Acid Level 3.13 *H 0.50-2.00 MMOL/L Calcium Level 9.0 8.5-10.1 MG/DL Corrected Calcium 8.7 8.5-10.1 MG/DL Total Bilirubin 1.0 0.1-1.0 MG/DL Aspartate Amino Transf (AST/SGOT) 40 H 5-34 U/L Alanine Aminotransferase (ALT/SGPT) 39 0-55 U/L Alkaline Phosphatase 89 40-136 U/L Lactate Dehydrogenase 227 H 125-220 U/L C-Reactive Protein High Sensitivity 1.04 H 0.00-0.50 MG/DL Total Protein 7.0 6.4-8.2 GM/DL Albumin 4.4 3.2-4.5 GM/DL Procalcitonin 0.09 <0.10 NG/ML My Orders Orders - PEYTON CAZARES MD Cbc With Automated Diff (08/02/20 13:18) Comprehensive Metabolic Panel (08/02/20 13:18) Fibrin Degradation Products (08/02/20 13:18) Procalcitonin (Pct) (08/02/20 13:18) Hs C Reactive Protein (08/02/20 13:18) LDH (08/02/20 13:18) Chest 1 View, Ap/Pa Only (08/02/20 13:18) Ns Iv 1000 Ml (Sodium Chloride 0.9%) (08/02/20 13:24) Rx-Albuterol Inhaler (Rx-Ventolin Hfa) (08/02/20 13:29) Loperamide Tablet (Imodium Tablet) (08/02/20 13:45) Albuterol Inhaler (Ventolin Hfa) (08/02/20 13:45) Loperamide Tablet (Imodium Tablet) (08/02/20 13:45) Loperamide Tablet (Imodium Tablet) (08/02/20 13:29) Blood Culture (08/02/20 13:39) Sputum Culture (08/02/20 13:39) Vital Signs Adult Sepsis Patie Q15M (08/02/20 13:39) O2 (08/02/20 13:39) Remove Rings In Anticipation O (08/02/20 13:39) Lactic Acid Analyzer (08/02/20 13:39) Loperamide Tablet (Imodium Tablet) (08/02/20 13:31) Benzonatate Capsule (Tessalon Perles) (08/02/20 14:45) Ct Angio Chest W (08/02/20 15:06) Iohexol Injection (Omnipaque 350 Mg/Ml 1 (08/02/20 15:15) Received Contrast (Hold Metformin- Contr (08/02/20 15:15) Ns (Ivpb) (Sodium Chloride 0.9% Ivpb Bag (08/02/20 15:15) Azithromycin Tablet (Zithromax Tablet) (08/02/20 16:15) Medications Given in ED Current Medications Medications Dose Ordered Sig/Daniel Route Start Time Stop Time Status Last Admin Dose Admin Albuterol Sulfate ONCE ONCE IH 08/02/20 13:45 08/02/20 13:46 DC 08/02/20 13:45 18 GM Benzonatate 200 mg ONCE ONCE PO 08/02/20 14:45 08/02/20 14:46 DC 08/02/20 14:49 200 MG Iohexol 100 ml ONCE ONCE IV 08/02/20 15:15 08/02/20 15:16 DC 08/02/20 15:34 81 ML Loperamide HCl 2 mg ONCE ONCE PO 08/02/20 13:45 08/02/20 13:46 DC 08/02/20 13:43 4 MG Sodium Chloride 100 ml ONCE ONCE IV 08/02/20 15:15 08/02/20 15:16 DC 08/02/20 15:34 80 ML Sodium Chloride 1,000 ml @ STK-MED ONCE .ROUTE 08/02/20 13:24 08/02/20 13:32 DC 08/02/20 14:12 999 MLS/HR Vital Signs/I&O 08/02/20 13:40 Temp 37.9 Pulse 115 Resp 20 B/P (MAP) 155/99 (117) Pulse Ox 95 Capillary Refill : Less Than 3 Seconds Blood Pressure Mean: 117 Departure Impression Primary Impression: COVID-19 Additional Impressions: Diarrhea Qualified Codes: R19.7 - Diarrhea, unspecified Pulmonary infiltrate Disposition: 01 HOME, SELF-CARE Condition: Improved Departure-Patient Inst. Decision time for Depature: 16:47 Referrals: BRANDIE LAMB MD (PCP/Family) Primary Care Physician Patient Instructions: COVID-19 Overview Add. Discharge Instructions: Drink plenty of clear liquids. Pedialyte or the generic equivalent would be ideal for rehydration. Avoid dairy products or fatty or greasy foods until your diarrhea has resolved. Use Imodium per package instructions for further episodes of diarrhea. Use Tessalon Perles (benzonatate) as directed for cough. Complete your azithromycin antibiotic as prescribed. Take your next dose tomorrow evening. Call with questions or concerns. Return to the ER if you have worsening symptoms. Contact the health department on Tuesday for further instructions regarding quarantine. Otherwise stay in quarantine until you are cleared by the health department since you are still symptomatic. All discharge instructions reviewed with patient and/or family. Voiced understanding. Scripts Azithromycin (Azithromycin) 250 Mg Tablet 250 MG PO DAILY, #4 TAB Prov: PEYTON CAZARES MD 08/02/20 Benzonatate (TESSALON PERLES) 100 Mg Capsule 200 MG PO TID PRN for COUGH, #20 CAP Prov: PEYTON CAZARES MD 08/02/20 PEYTON CAZARES MD August 02, 2020 16:50
[2020-08-02 17:05] VITALS: BP 141/76
== END 2020-08-02 17:05 | disposition home or self-care (01) ==
LOC: EDUNIT# 13:09 → ER 13:12
DX: U07.1 COVID-19 (principal); R91.8 Other nonspecific abnormal finding of lung field; R19.7 Diarrhea, unspecified; I10 Essential (primary) hypertension; E11.9 Type 2 diabetes mellitus without complications; Z73.0 Burn-out; Z95.5 Presence of coronary angioplasty implant and graft; Z79.82 Long term (current) use of aspirin
CPT/HCPCS: 36415; 71045; 71275; 80053; 83605; 83615; 84145; 85025; 85379; 86141; 87040

== ENCOUNTER 2021-08-24 09:59 | Observation (INO) | payer SELFPAY ==
[~2021-08-24] VITALS: Ht 175.3 cm; Wt 96.1 kg
[~2021-08-24 09:59] MED LIST changes: +AZIT250T12 PO; +BENZ100C18 PO
[2021-08-24] MEDS ORDERED: LORazepam INJ 2 MG/ML (ATIVAN) VIAL IVP ONE (10:30)
[2021-08-24 10:39] LABS: BASOPHILS % (AUTO) 0 % (0-10); EOSINOPHILS # (AUTO) 0.1 10^3/uL (0.0-0.3); EOSINOPHILS % (AUTO) 3 % (0-10); HEMATOCRIT 43 % (40-54); HEMOGLOBIN 14.5 g/dL (13.3-17.7); LYMPHOCYTES # (AUTO) 1.3 10^3/uL (1.0-4.0); LYMPHOCYTES % (AUTO) 28 % (12-44); MEAN CORPUSCULAR HEMOGLOBIN 31 pg (25-34); MEAN CORPUSCULAR HGB CONC 33 g/dL (32-36); MEAN CORPUSCULAR VOLUME 93 fL (80-99); MEAN PLATELET VOLUME 10.5 fL (9.0-12.2); MONOCYTES # (AUTO) 0.3 10^3/uL (0.0-1.0); MONOCYTES % (AUTO) 7 % (0-12); NEUTROPHILS % (AUTO) 62 % (42-75); PLATELET COUNT 187 10^3/uL (130-400); WHITE BLOOD COUNT 4.8 10^3/uL (4.3-11.0)
[2021-08-24 10:40] LABS: ALBUMIN 4.3 GM/DL (3.2-4.5); CHLORIDE 105 MMOL/L (98-107); POTASSIUM 4.4 MMOL/L (3.6-5.0); SODIUM 144 MMOL/L (135-145)
[2021-08-24] MEDS ORDERED: RT-ALBUTEROL/IPRATROPIUM 3 ML (DUONEB) VIAL ONE (10:40)
[2021-08-24 10:41] LABS: CALCIUM 9.3 MG/DL (8.5-10.1)
[2021-08-24 10:43] LABS: GLUCOSE 134 MG/DL (70-105); TOTAL PROTEIN 6.8 GM/DL (6.4-8.2)
[2021-08-24 10:44] LABS: BILIRUBIN,TOTAL 0.6 MG/DL (0.1-1.0); CARBON DIOXIDE 26 MMOL/L (21-32)
[2021-08-24] MEDS ORDERED: RT-ALBUTEROL/IPRATROPIUM 3 ML (DUONEB) VIAL INH ONE (10:45)
--- NOTE | 2021-08-24 10:45 | ED Respiratory ---
General Chief Complaint: Cough/Cold/Flu Symptoms Stated Complaint: COUGH,SOB,DIZZINESS Nursing Triage Note: pt ambulatory to room. pt states he has had a cough for about 1 week. pt saw his pcp and was prescribed "some pill" for his cough and congestion but he states it has not helped. pt has been sob and feeling lightheaded. pt states he has been sleeping with O2 off and on since he had Covid and taking breathing treatments at home Source: patient Exam Limitations: no limitations History of Present Illness Date Seen by Provider: August 24, 2021 Time Seen by Provider: 10:22 Initial Comments Patient to the ER by private conveyance from home with chief complaint of shortness of air, lightheaded, left work because he felt like he was going to pass out because of how short of air he was. This been going on for a week. Last week he saw Ivette Gallardo and wanted the steroid shot but they declined at that time. He does not have a history of heart failure or heart disease. He does take albuterol routinely and says that this helps. He is mostly having a dry cough but occasionally gets up some white frothy phlegm. Patient had COVID sometime back and has been sleeping with oxygen on at night since then. He is not a smoker nor does he use recreational drugs. He was prescribed a pill for his congestion but did not feel like it helped any. He has had chills but has not measured any fevers because he does not have a thermometer. Allergies and Home Medications Allergies Coded Allergies: No Known Drug Allergies (Unverified , 10/07/08) Patient Home Medication List Home Medication List Reviewed: Yes Aspirin (Aspirin EC) 81 Mg Tablet.dr, 81 MG PO DAILY, (Reported) Entered as Reported by: ELYSSA MCCORD on 05/10/17 0832 Azithromycin (Azithromycin) 250 Mg Tablet, 250 MG PO DAILY Prescribed by: PEYTON MERCADO on 08/02/20 164 Benzonatate (Tessalon Perles) 100 Mg Capsule, 200 MG PO TID PRN for COUGH Prescribed by: PEYTON MERCADO on 08/02/20 164 Dexamethasone (Dexamethasone) 4 Mg Tablet, 4 MG PO DAILY Prescribed by: BRANDIE LAMB on 05/11/17 0924 Metoprolol Succinate (Metoprolol Succinate) 50 Mg Tab.er.24h, 50 MG PO DAILY, (Reported) Entered as Reported by: ELYSSA MCCORD on 05/10/17831 Simvastatin (Simvastatin) 40 Mg Tablet, 40 MG PO DAILY, (Reported) Entered as Reported by: ELYSSA MCCORD on 05/10/1732 Review of Systems Review of Systems Constitutional: No chills, No diaphoresis EENTM: No ear discharge, No ear pain Respiratory: cough, phlegm, short of breath Cardiovascular: No chest pain, No palpitations Gastrointestinal: No abdominal pain, No nausea, No vomiting Genitourinary: No discharge, No dysuria Musculoskeletal: No back pain, No joint pain All Other Systems Reviewed Negative Unless Noted: Yes Past Eqbjems-Begnqo-Ierfzr Hx Patient Social History Tobacco Use?: No Use of E-Cig and/or Vaping dev: No Substance use?: No Immunizations Up To Date Tetanus Booster (TDap): Unknown PED Vaccines UTD: No Seasonal Allergies Seasonal Allergies: No Past Medical History Surgeries: Yes Adenoidectomy, Appendectomy, Coronary Stent, Tonsillectomy Respiratory: No Cardiac: Yes (CARDIAC CATH) Hypertension Neurological: No Reproductive Disorders: No Genitourinary: No Gastrointestinal: No Musculoskeletal: No Endocrine: Yes Diabetes, Non-Insulin dep HEENT: No Cancer: No Psychosocial: No Integumentary: No (MULTIPLE FATTY TUMORS) Blood Disorders: No Family Medical History Cardiovascular disease 19 FATHER Diabetes mellitus G8 SISTER G8 SISTER G8 SISTER FH: breast cancer 19 MOTHER Hypertension G8 SISTER No Pertinent Family Hx Physical Exam Vital Signs - First Documented 08/24/21 10:11 Temp 36.6 Pulse 89 Resp 24 Pulse Ox 97 O2 Delivery Nasal Cannula O2 Flow Rate 2.00 Capillary Refill : Height: 5'9.00" Weight: 225lbs. 0.0oz. 102.702803kg; 30.00 BMI Method:Stated General Appearance: WD/WN, moderate distress Eyes: Bilateral Eye Normal Inspection, Bilateral Eye PERRL, Bilateral Eye EOMI HEENT: PERRL/EOMI, pharynx normal Neck: full range of motion, normal inspection Respiratory: No lungs clear; respiratory distress (Mild to moderate with oxygen saturation 86 to 87% on room air and breathing 20 to 30 breaths/min), decreased breath sounds, accessory muscle use, crackles (Bibasilar); No wheezing Cardiovascular: normal peripheral pulses, regular rate, rhythm Gastrointestinal: normal bowel sounds, non tender Neurologic/Psychiatric: alert, normal mood/affect, oriented x 3 Skin: normal color, warm/dry Focused Exam Lactate Level 08/24/21 10:57: Lactic Acid Level 1.45 Lactic Acid Level Laboratory Tests Test 08/24/21 10:57 Lactic Acid Level 1.45 MMOL/L (0.50-2.00) Progress/Results/Core Measures Suspected Sepsis SIRS Temperature: Pulse: 89 Respiratory Rate: 24 Laboratory Tests 08/24/21 10:21: White Blood Count 4.8 Blood Pressure / Mean: 08/24/21 10:57: Lactic Acid Level 1.45 Laboratory Tests 08/24/21 10:21: Creatinine 0.79, Platelet Count 187, Total Bilirubin 0.6 Results/Orders Lab Results Laboratory Tests Test 08/24/21 10:21 08/24/21 10:57 08/24/21 11:20 Range/Units White Blood Count 4.8 4.3-11.0 10^3/uL Red Blood Count 4.68 4.30-5.52 10^6/uL Hemoglobin 14.5 13.3-17.7 g/dL Hematocrit 43 40-54 % Mean Corpuscular Volume 93 80-99 fL Mean Corpuscular Hemoglobin 31 25-34 pg Mean Corpuscular Hemoglobin Concent 33 32-36 g/dL Red Cell Distribution Width 12.0 10.0-14.5 % Platelet Count 187 130-400 10^3/uL Mean Platelet Volume 10.5 9.0-12.2 fL Immature Granulocyte % (Auto) 0 % Neutrophils (%) (Auto) 62 42-75 % Lymphocytes (%) (Auto) 28 12-44 % Monocytes (%) (Auto) 7 0-12 % Eosinophils (%) (Auto) 3 0-10 % Basophils (%) (Auto) 0 0-10 % Neutrophils # (Auto) 3.0 1.8-7.8 10^3/uL Lymphocytes # (Auto) 1.3 1.0-4.0 10^3/uL Monocytes # (Auto) 0.3 0.0-1.0 10^3/uL Eosinophils # (Auto) 0.1 0.0-0.3 10^3/uL Basophils # (Auto) 0.0 0.0-0.1 10^3/uL Immature Granulocyte # (Auto) 0.0 0.0-0.1 10^3/uL Sodium Level 144 135-145 MMOL/L Potassium Level 4.4 3.6-5.0 MMOL/L Chloride Level 105 98-107 MMOL/L Carbon Dioxide Level 26 21-32 MMOL/L Anion Gap 13 5-14 MMOL/L Blood Urea Nitrogen 13 7-18 MG/DL Creatinine 0.79 0.60-1.30 MG/DL Estimat Glomerular Filtration Rate 98 BUN/Creatinine Ratio 16 Glucose Level 134 H 70-105 MG/DL Calcium Level 9.3 8.5-10.1 MG/DL Corrected Calcium 9.1 8.5-10.1 MG/DL Total Bilirubin 0.6 0.1-1.0 MG/DL Aspartate Amino Transf (AST/SGOT) 26 5-34 U/L Alanine Aminotransferase (ALT/SGPT) 25 0-55 U/L Alkaline Phosphatase 84 40-136 U/L Troponin I < 0.028 <0.028 NG/ML C-Reactive Protein High Sensitivity 0.66 H 0.00-0.50 MG/DL B-Type Natriuretic Peptide 12.3 <100.0 PG/ML Total Protein 6.8 6.4-8.2 GM/DL Albumin 4.3 3.2-4.5 GM/DL Influenza Type A (RT-PCR) Not Detected Not Detecte Influenza Type B (RT-PCR) Not Detected Not Detecte SARS-CoV-2 RNA (RT-PCR) Not Detected Not Detecte Lactic Acid Level 1.45 0.50-2.00 MMOL/L Blood Gas Puncture Site LT RAD Blood Gas Patient Temperature 37.0 Arterial Blood pH 7.34 *L 7.37-7.43 Arterial Blood Partial Pressure CO2 51 H 35-45 MMHG Arterial Blood Partial Pressure O2 86 79-93 MMHG Arterial Blood HCO3 27 23-27 MMOL/L Arterial Blood Total CO2 28.0 21.0-31.0 MMOL/L Arterial Blood Oxygen Saturation 96 94-100 % Arterial Blood Base Excess 1.3 -2.5-2.5 MMOL/L Noman Test YES-POS Blood Gas Ventilator Setting NO Blood Gas Inspired Oxygen 2 L My Orders Orders - TESSY BARRERA Ekg Tracing (08/24/21 10:29) Continuous Ekg Monitoring (08/24/21 10:29) Cbc With Automated Diff (08/24/21 10:29) Comprehensive Metabolic Panel (08/24/21 10:29) Hs C Reactive Protein (08/24/21 10:29) Chest 1 View, Ap/Pa Only (08/24/21 10:29) Lorazepam Injection (Ativan Injection) (08/24/21 10:30) Covid 19 Inhouse Test (08/24/21 10:29) Influenza A And B By Pcr (08/24/21 10:29) Bnp Keith (08/24/21 10:29) Troponin I Keith (08/24/21 10:29) Albuterol/Ipra Inhalation Soln (Duoneb I (08/24/21 10:45) Svn Small Volume Nebulizer (08/24/21 10:39) Albuterol/Ipra Inhalation Soln (Duoneb I (08/24/21 10:40) Arterial Blood Gas (08/24/21 10:50) Sputum Culture (08/24/21 11:11) Blood Culture (08/24/21 11:11) Lactic Acid Analyzer (08/24/21 11:11) Methylprednisolone Sod Succ (Solu-Medrol (08/24/21 11:45) Medications Given in ED Current Medications Medications Dose Ordered Sig/Daniel Route Start Time Stop Time Status Last Admin Dose Admin Albuterol/ Ipratropium 3 ml ONCE ONCE INH 08/24/21 10:45 08/24/21 10:46 DC 08/24/21 10:50 3 ML Lorazepam 0.5 mg ONCE ONCE IVP 08/24/21 10:30 08/24/21 10:33 DC 08/24/21 10:40 0.5 MG Vital Signs/I&O 08/24/21 08/24/21 10:11 10:51 Temp 36.6 Pulse 89 Resp 24 B/P (MAP) Pulse Ox 97 96 O2 Delivery Nasal Cannula Nasal Cannula O2 Flow Rate 2.00 2.00 Capillary Refill : Progress Note #1: Time: 10:44 Progress Note He does not cross the threshold of sepsis yet but he did have increased respiratory rate and chills to vertigo him pull cultures and lactate. We will cover him with broad-spectrum antibiotics. We will also consider the possibility of heart failure, pulmonary edema, viral pneumonia etc. DuoNeb, ABG and labs. Some Ativan for his anxiety and since he was hypoxic we will give him a small dose of Ativan to help with his symptoms Progress Note #2: Time: 11:54 Progress Note Patient feels much more relaxed after the breathing treatment. He still desats quickly to 87% if he takes his oxygen off or has a coughing fit. We did discuss treatment at home versus inpatient and with his borderline ABG for CO2 retention he would agree to stay here at the hospital. ECG Initial ECG Impression Date: August 24, 2021 Initial ECG Impression Time: 10:40 Initial ECG Rate: 85 Initial ECG Rhythm: Normal Sinus Initial ECG Intervals: Normal Initial ECG Impression: Normal Comment Normal sinus rhythm without clinically relevant ST changes. Diagnostic Imaging Diagonstic Imaging: Xray Plain Films/CT/US/NM/MRI: chest Comments [facility] [place], [place] NAME: [facility]ENS [facility] REC#: [id number] PT STATUS: REG ER : 1955 PHYSICIAN: TESSY BARRERA MD ADMIT DATE: 08/24/21/ER Signed Date of Exam:08/24/21 CHEST 1 VIEW, AP/PA ONLY INDICATION: Shortness of breath and cough. Comparison is made with prior exam of 08/02/2020 FINDINGS: There is cardiomegaly. Lungs are otherwise clear. No pleural fusion or pneumothorax. The mediastinum is unremarkable. IMPRESSION: No acute cardiopulmonary abnormality. Cardiomegaly. Dictated by: Dictated on workstation # [id number] Dict: 08/24/21 1057 Trans: 08/24/21 1101 [facility] [id number] Interpreted by: TAWNY CHANEL MD Electronically signed by: TAWNY CHANEL MD 08/24/21 1101 Reviewed: Reviewed by Me Departure Communication (Admissions) Time/Spoke to Admitting Phy: 12:[address] Merritt agrees to observe the patient on the floor BiPAP if well tolerated otherwise O2 and steroids. Impression Primary Impression: COPD with exacerbation Additional Impressions: Post-COVID syndrome Acute on chronic respiratory failure with hypoxia and hypercapnia Disposition: ADMITTED INPATIENT Condition: Stable Admissions Decision to Admit Reason: Admit from ER (General) Decision to Admit/Date: August 24, 2021 Time/Decision to Admit Time: 11:50 Departure-Patient Inst. Referrals: [facility] (PCP) Primary Care Physician IVETTE GALLARDO (Family) Primary Care Physician TESSY BARRERA August 24, 2021 10:45
[2021-08-24 10:46] LABS: ALKALINE PHOSPHATASE 84 U/L (40-136); CREATININE SERUM 0.79 MG/DL (0.60-1.30); GFR ESTIMATED 98
[2021-08-24 10:47] LABS: BUN/CREATININE RATIO 16
[2021-08-24 10:49] LABS: ALANINE AMINOTRANSFERASE 25 U/L (0-55)
--- NOTE | 2021-08-24 10:59 | Diagnostic Imaging Report ---
INDICATION: Shortness of breath and cough. Comparison is made with prior exam of 08/02/2020 FINDINGS: There is cardiomegaly. Lungs are otherwise clear. No pleural fusion or pneumothorax. The mediastinum is unremarkable. IMPRESSION: No acute cardiopulmonary abnormality. Cardiomegaly. Dictated by: Dictated on workstation # [id number]
[2021-08-24 11:24] LABS: ABG BASE EXCESS 1.3 MMOL/L (-2.5-2.5); ABG OXYGEN SATURATION 96 % (94-100); ABG PCO2 51 MMHG (35-45); ABG PO2 86 MMHG (79-93)
[2021-08-24 11:27] LABS: ABG PH 7.34 (7.37-7.43); ALLENS TEST YES-POS; INSPIRED O2 2 L; VENTILATOR NO
[2021-08-24] MEDS ORDERED: methylPREDNISolone 125 MG (Solu-MEDROL) VIAL IVP ONE (11:45)
[2021-08-24 13:40] VITALS: BP 130/81
[2021-08-24] MEDS ORDERED: ACETAMINOPHEN 325 MG TABLET PO PRN (13:45)
[2021-08-24] MEDS ORDERED: RT-ALBUTEROL SULF 2.5 MG/3 ML PRE-MIX VIAL INH PRN (13:45)
[2021-08-24] MEDS ORDERED: IBUPROFEN 600 MG (MOTRIN) TAB PO PRN ×2 (13:45→14:30)
--- NOTE | 2021-08-24 13:59 | History & Physical ---
HPI History of Present Illness: 66 yo male presented to ER due to cough and shortness of breath. Coughing so hard he felt he might pass out but has not. Has been going on for about a week. Saw Sunny Gallardo and got some medication but not sure what it was. He has been using albuterol as needed since he had COVID. He was diagnosed with COVID 2 days after he got his vaccine. Lately needing albuterol at least daily. PFT 2018 showed moderate obstructive defect, but he denies diagnosis of asthma or COPD, is a never smoker. Cardiac cath in 2010 with non-obstructive disease, stress echo 2016 okay. Has home oxygen that he uses as needed, he doesn't actually believe it was prescribed for him, is not his, he has used since he had COVID. Source: patient Date seen by provider: August 24, 2021 Time Seen by Provider: 13:56 Attending Physician [place] PCP Admitting Physician: Kim Merritt MD Attending Physician: Kim Merritt MD Consult Date of Admission August 24, 2021 at 12:05 Home Medications Home Medications Reviewed patient Home Medication Reconciliation performed by pharmacy medication reconciliations heating repair technician and/or nursing. Patients Allergies have been reviewed. Allergies Coded Allergies: No Known Drug Allergies (Unverified , 10/07/08) RFD-Mditni-Jilfyh Hx Patient Social History Smoking Status: Never a Smoker 2nd Hand Smoke Exposure: Yes (father smoked) Recent Hopitalizations: No Alcohol Use?: Yes (rare) Have you traveled recently?: No Immunizations Up To Date Tetanus Booster (TDap): Unknown Influenza Vaccine Up-to-Date: Yes; Up-to-Date (12/24/20) First/Initial COVID19 Vaccinat: 07/23/20 Second COVID19 Vaccination Glynn: 10/21/20 Third COVID19 Vaccination Date: 02/27/21 Past Medical History PMHx: HTN DMII HLD Multiple lipomas Abdominal wall hernia SurgHx: Tonsillectomy/adenoidectomy Appendectomy Family Medical History Family History: Cardiovascular disease 19 FATHER Diabetes mellitus G8 SISTER G8 SISTER G8 SISTER FH: breast cancer 19 MOTHER Hypertension G8 SISTER Review of Systems (CHC) Constitutional: No chills; diaphoresis; No fever; weight loss (lost weight when he had covid) EENTM: throat pain (mild, he thinks related to cough); No hearing loss, No vision loss Respiratory: cough, phlegm (white frothy), short of breath Cardiovascular: No chest pain, No palpitations, No syncope Gastrointestinal: abdominal pain (when coughing); No diarrhea, No nausea, No vomiting Genitourinary: No dysuria Musculoskeletal: muscle pain (sometimes, relates to age) Skin: No lesions Psychiatric/Neurological: Denies Anxiety, Denies Depressed, Denies Headache Reviewed Test Results Reviewed Test Results Lab Laboratory Tests Test 08/24/21 10:21 08/24/21 10:57 08/24/21 11:20 Range/Units White Blood Count 4.8 4.3-11.0 10^3/uL Red Blood Count 4.68 4.30-5.52 10^6/uL Hemoglobin 14.5 13.3-17.7 g/dL Hematocrit 43 40-54 % Mean Corpuscular Volume 93 80-99 fL Mean Corpuscular Hemoglobin 31 25-34 pg Mean Corpuscular Hemoglobin Concent 33 32-36 g/dL Red Cell Distribution Width 12.0 10.0-14.5 % Platelet Count 187 130-400 10^3/uL Mean Platelet Volume 10.5 9.0-12.2 fL Immature Granulocyte % (Auto) 0 % Neutrophils (%) (Auto) 62 42-75 % Lymphocytes (%) (Auto) 28 12-44 % Monocytes (%) (Auto) 7 0-12 % Eosinophils (%) (Auto) 3 0-10 % Basophils (%) (Auto) 0 0-10 % Neutrophils # (Auto) 3.0 1.8-7.8 10^3/uL Lymphocytes # (Auto) 1.3 1.0-4.0 10^3/uL Monocytes # (Auto) 0.3 0.0-1.0 10^3/uL Eosinophils # (Auto) 0.1 0.0-0.3 10^3/uL Basophils # (Auto) 0.0 0.0-0.1 10^3/uL Immature Granulocyte # (Auto) 0.0 0.0-0.1 10^3/uL Sodium Level 144 135-145 MMOL/L Potassium Level 4.4 3.6-5.0 MMOL/L Chloride Level 105 98-107 MMOL/L Carbon Dioxide Level 26 21-32 MMOL/L Anion Gap 13 5-14 MMOL/L Blood Urea Nitrogen 13 7-18 MG/DL Creatinine 0.79 0.60-1.30 MG/DL Estimat Glomerular Filtration Rate 98 BUN/Creatinine Ratio 16 Glucose Level 134 H 70-105 MG/DL Calcium Level 9.3 8.5-10.1 MG/DL Corrected Calcium 9.1 8.5-10.1 MG/DL Total Bilirubin 0.6 0.1-1.0 MG/DL Aspartate Amino Transf (AST/SGOT) 26 5-34 U/L Alanine Aminotransferase (ALT/SGPT) 25 0-55 U/L Alkaline Phosphatase 84 40-136 U/L Troponin I < 0.028 <0.028 NG/ML C-Reactive Protein High Sensitivity 0.66 H 0.00-0.50 MG/DL B-Type Natriuretic Peptide 12.3 <100.0 PG/ML Total Protein 6.8 6.4-8.2 GM/DL Albumin 4.3 3.2-4.5 GM/DL Influenza Type A (RT-PCR) Not Detected Not Detecte Influenza Type B (RT-PCR) Not Detected Not Detecte SARS-CoV-2 RNA (RT-PCR) Not Detected Not Detecte Lactic Acid Level 1.45 0.50-2.00 MMOL/L Blood Gas Puncture Site LT RAD Blood Gas Patient Temperature 37.0 Arterial Blood pH 7.34 *L 7.37-7.43 Arterial Blood Partial Pressure CO2 51 H 35-45 MMHG Arterial Blood Partial Pressure O2 86 79-93 MMHG Arterial Blood HCO3 27 23-27 MMOL/L Arterial Blood Total CO2 28.0 21.0-31.0 MMOL/L Arterial Blood Oxygen Saturation 96 94-100 % Arterial Blood Base Excess 1.3 -2.5-2.5 MMOL/L Noman Test YES-POS Blood Gas Ventilator Setting NO Blood Gas Inspired Oxygen 2 L Radiology CXR 08/24/21: IMPRESSION: No acute cardiopulmonary abnormality. Physical Exam-(CHC) Physical Exam Vital Signs VS - Last 72 Hours, by Label 08/24/21 08/24/21 08/24/21 08/24/21 10:11 10:51 12:41 13:40 Temp 36.6 36.6 Pulse 89 68 89 Resp 24 B/P (MAP) 130/81 Pulse Ox 97 96 96 O2 Delivery Nasal Cannula Nasal Cannula O2 Flow Rate 2.00 2.00 FiO2 28 08/24/21 08/24/21 08/24/21 14:54 14:57 15:53 Temp 36.9 36.3 Pulse 68 69 Resp 18 19 B/P (MAP) 128/77 (94) 134/82 (99) Pulse Ox 97 95 O2 Delivery Nasal Cannula Nasal Cannula Nasal Cannula O2 Flow Rate 2.00 2.00 2.00 Capillary Refill : General Appearance: WD/WN, no apparent distress Respiratory: decreased breath sounds, wheezing (end expiratory) Cardiovascular: regular rate, rhythm, no murmur Gastrointestinal: normal bowel sounds, non tender, soft, other (soft, reducible, non-tender hernia) Extremities: no pedal edema Neurologic/Psychiatric: alert, normal mood/affect Skin: warm/dry Assessment/Plan Assessment/Plan Admission Status: Observation (1) COPD with exacerbation Status: Acute Assessment & Plan: Clinical picture consistent with COPD exacerbation, although he denies history of diagnosis of COPD. He is a never smoker but with significant second hand smoke. Given never smoker status will check alpha 1 antitrypsin as he had findings of moderate obstruction prior to his COVID infection and has no history of childhood asthma. -Duonebs, solumedrol (2) Diabetes mellitus, type 2 Status: Chronic Assessment & Plan: Resume home metformin, diabetic diet, sliding scale insulin Qualifiers: Qualified Codes: E11.65 - Type 2 diabetes mellitus with hyperglycemia (3) Hypertension Status: Chronic Assessment & Plan: Resume home medications Qualifiers: Qualified Codes: I10 - Essential (primary) hypertension (4) Hyperlipidemia Status: Chronic Assessment & Plan: Continue home statin (5) DVT prophylaxis Status: Acute Assessment & Plan: KIM Peterson MD August 24, 2021 13:59
[2021-08-24] MEDS ORDERED: FLUT9.9S NS (14:18)
[2021-08-24] MEDS ORDERED: RT-ALBUINH IH (14:18)
[2021-08-24] MEDS ORDERED: CETI10TA17 PO (14:18)
[2021-08-24] MEDS ORDERED: METF-399 PO (14:18)
[2021-08-24 14:54] VITALS: BP 128/77
[2021-08-24] MEDS: LACTATED RINGERS 1,000 ML IV SCH ×2 (15:01→22:28)
[2021-08-24 15:53] VITALS: BP 134/82
[2021-08-24] MEDS: methylPREDNISolone 125 MG (Solu-MEDROL) VIAL IVP SCH ×2 (18:41→23:43)
[2021-08-24 20:00] VITALS: BP 153/88
[2021-08-24] MEDS: RT-ALBUTEROL/IPRATROPIUM 3 ML (DUONEB) VIAL INH SCH (20:29)
[2021-08-24] MEDS: metFORMIN 500 MG (GLUCOPHAGE) TAB PO SCH (20:56)
[2021-08-25] VITALS (7 sets, daily range): BP systolic 131–173; BP diastolic 72–84
[2021-08-25] MEDS: RT-ALBUTEROL/IPRATROPIUM 3 ML (DUONEB) VIAL INH SCH ×4 (02:21→21:21)
[2021-08-25] MEDS: methylPREDNISolone 125 MG (Solu-MEDROL) VIAL IVP SCH (04:41)
[2021-08-25 05:51] LABS: BASOPHILS % (AUTO) 0 % (0-10); EOSINOPHILS % (AUTO) 0 % (0-10); HEMATOCRIT 37 % (40-54); HEMOGLOBIN 12.6 g/dL (13.3-17.7); LYMPHOCYTES # (AUTO) 0.7 10^3/uL (1.0-4.0); LYMPHOCYTES % (AUTO) 10 % (12-44); MEAN CORPUSCULAR HEMOGLOBIN 31 pg (25-34); MEAN CORPUSCULAR HGB CONC 34 g/dL (32-36); MEAN CORPUSCULAR VOLUME 92 fL (80-99); MEAN PLATELET VOLUME 10.5 fL (9.0-12.2); MONOCYTES # (AUTO) 0.1 10^3/uL (0.0-1.0); MONOCYTES % (AUTO) 1 % (0-12); NEUTROPHILS # (AUTO) 6.6 10^3/uL (1.8-7.8); NEUTROPHILS % (AUTO) 89 % (42-75); PLATELET COUNT 180 10^3/uL (130-400); WHITE BLOOD COUNT 7.5 10^3/uL (4.3-11.0)
[2021-08-25 06:09] LABS: POTASSIUM 4.3 MMOL/L (3.6-5.0)
[2021-08-25 06:10] LABS: CALCIUM 9.1 MG/DL (8.5-10.1)
[2021-08-25 06:14] LABS: CREATININE SERUM 0.72 MG/DL (0.60-1.30)
[2021-08-25 06:22] LABS: LYMPHOCYTES % (MANUAL) 8 %; MONOCYTES % (MANUAL) 3 %; NEUTROPHILS % (MANUAL) 87 %; RBC MORPH NORMAL; REACTIVE LYMPHOCYTES 2 %
[2021-08-25] MEDS: LACTATED RINGERS 1,000 ML IV SCH (06:35)
--- NOTE | 2021-08-25 07:31 | Diagnostic Imaging Report ---
Indication: Shortness of breath with cough. Comparison with 08/24/2021. FINDINGS: The heart is not enlarged. The lungs are well aerated and clear. There is no pneumothorax or pleural effusion. No bony abnormalities. IMPRESSION: Normal portable chest. Heart size has decreased since previous exam. Dictated by: Dictated on workstation # [id number]
[2021-08-25] MEDS: ASPIRIN E.C. 81 MG (ECOTRIN) TAB PO SCH (08:42)
[2021-08-25] MEDS: FLUTICASONE NASAL SPRAY (FLONASE) 16 GM BTL NS SCH (08:43)
[2021-08-25] MEDS: LORATADINE (CLARITIN) 10 MG TAB PO SCH (08:43)
[2021-08-25] MEDS ORDERED: meTOproloL SUCCINATE 50 MG (TOPROL XL) TAB PO SCH (09:00)
[2021-08-25] MEDS ORDERED: SIMvastatin 40 MG (ZOCOR) TAB PO SCH (09:00)
[2021-08-25] MEDS ORDERED: FLUT9.9S NS (11:02)
[2021-08-25] MEDS: predniSONE 20 MG TAB PO SCH (11:24)
--- NOTE | 2021-08-25 11:25 | Progress Note ---
Subjective Subjective/Events-last exam Pt states he is feeling about the same, had a lot of coughing with breathing treatment and feels short of breath after that, still on 2 lpm supplemental oxygen. Focused Exam Lactate Level 08/24/21 10:57: Lactic Acid Level 1.45 Objective Exam Last Set of Vital Signs Vital Signs Date Time Temp Pulse Resp B/P (MAP) Pulse Ox O2 Delivery O2 Flow Rate FiO2 08/25/21 08:29 95 Nasal Cannula 2.00 08/25/21 07:31 36.5 87 17 145/77 (99) 08/24/21 13:40 28 Capillary Refill : I&O Intake and Output 08/25/21 00:00 Intake Total 2960 ml Output Total 1200 ml Balance 1760 ml Intake Oral 1960 ml IV Total 1000 ml Output Urine Total 1200 ml Daily Weight Change No General: Alert, No Acute Distress Lungs: Other (decreased air movement throughout) Heart: Regular Rate, No Murmurs Abdomen: Normal Bowel Sounds, Soft Extremities: No Edema Neuro: Normal Speech Psych/Mental Status: Mood NL Results/Procedures Lab Laboratory Tests 08/25/21 05:31: White Blood Count 7.5, Red Blood Count 4.08L, Hemoglobin 12.6L, Hematocrit 37L, Mean Corpuscular Volume 92, Mean Corpuscular Hemoglobin 31, Mean Corpuscular Hemoglobin Concent 34, Red Cell Distribution Width 11.9, Platelet Count 180, Mean Platelet Volume 10.5, Immature Granulocyte % (Auto) 0, Neutrophils (%) (Auto) 89H, Lymphocytes (%) (Auto) 10L, Monocytes (%) (Auto) 1, Eosinophils (%) (Auto) 0, Basophils (%) (Auto) 0, Neutrophils # (Auto) 6.6, Lymphocytes # (Auto) 0.7L, Monocytes # (Auto) 0.1, Eosinophils # (Auto) 0.0, Basophils # (Auto) 0.0, Immature Granulocyte # (Auto) 0.0, Neutrophils % (Manual) 87, Lymphocytes % (Manual) 8, Monocytes % (Manual) 3, Reactive Lymphocytes 2, Blood Morphology Comment NORMAL, Sodium Level 138, Potassium Level 4.3, Chloride Level 105, Carbon Dioxide Level 20L, Anion Gap 13, Blood Urea Nitrogen 14, Creatinine 0.72, Estimat Glomerular Filtration Rate 101, BUN/Creatinine Ratio 19, Glucose Level 217H, Calcium Level 9.1 Radiology CXR 08/24/21: IMPRESSION: No acute cardiopulmonary abnormality. Assessment/Plan Assessment/Plan (1) COPD with exacerbation Status: Acute Assessment & Plan: Clinical picture consistent with COPD exacerbation, although he denies history of diagnosis of COPD. He is a never smoker but with significant second hand smoke. Given never smoker status will check alpha 1 antitrypsin as he had findings of moderate obstruction prior to his COVID infection and has no history of childhood asthma. -Duonebs, solumedrol 08/25- change to oral prednisone, home O2 study (2) Diabetes mellitus, type 2 Status: Chronic Assessment & Plan: Resume home metformin, diabetic diet, sliding scale insulin Qualifiers: Qualified Codes: E11.65 - Type 2 diabetes mellitus with hyperglycemia (3) Hypertension Status: Chronic Assessment & Plan: Resume home medications Qualifiers: Qualified Codes: I10 - Essential (primary) hypertension (4) Hyperlipidemia Status: Chronic Assessment & Plan: Continue home statin (5) DVT prophylaxis Status: Acute Assessment & Plan: JOHN Peterson MD August 25, 2021 11:25
[2021-08-25] MEDS: metFORMIN 500 MG (GLUCOPHAGE) TAB PO SCH (20:42)
[2021-08-26] MEDS: RT-ALBUTEROL/IPRATROPIUM 3 ML (DUONEB) VIAL INH SCH ×2 (02:54→07:22)
[2021-08-26 04:00] VITALS: BP 123/63
[2021-08-26] MEDS: predniSONE 20 MG TAB PO SCH (06:50)
[2021-08-26] MEDS ORDERED: PRD20T PO (07:22)
[2021-08-26] MEDS ORDERED: UMEC62.5 IH (07:23)
[2021-08-26] MEDS ORDERED: RT-ALBUINH IH (07:23)
[2021-08-26 07:59] VITALS: BP 138/73
[2021-08-26] MEDS: FLUTICASONE NASAL SPRAY (FLONASE) 16 GM BTL NS SCH (09:08)
[2021-08-26] MEDS: ASPIRIN E.C. 81 MG (ECOTRIN) TAB PO SCH (09:08)
[2021-08-26] MEDS: LORATADINE (CLARITIN) 10 MG TAB PO SCH (09:08)
--- NOTE | 2021-08-26 11:02 | Discharge Summary ---
Discharge [facility] Discharge Medications New, Converted or Re-Newed RX: Transmitted to Pharmacy New Medications: Albuterol Sulfate (Proair Hfa) 1 Puff Puff 2 PUFF IH Q4H PRN for SHORTNESS OF BREATH, #1 EA 0 Refills 1 PUFF = 90 MCG Umeclidinium [place] (Incruse Ellipta) 62.5 Mcg/Actuation Blst.w.dev 62.5 MCG IH DAILY, #1 EA 0 Refills Prednisone (Prednisone) 20 Mg Tab 40 MG PO DAILY@0700, #8 TAB 0 Refills Continued Medications: Aspirin (Aspirin EC) 81 Mg Tablet.dr 81 MG PO HS, TAB Cetirizine HCl (Cetirizine HCl) 10 Mg Tablet 10 MG PO HS, TAB Fluticasone Propionate (Flonase Allergy Relief) 50 Mcg/Actuation [place].susp 1 SPRAY NS DAILY, EACH Metformin HCl (Metformin HCl) 1,000 Mg Tablet 1000 MG PO HS, TAB Metoprolol Succinate (Metoprolol Succinate) 50 Mg Tab.er.24h 50 MG PO HS, TAB Simvastatin (Simvastatin) 40 Mg Tablet 40 MG PO HS, TAB Patient Instructions Goal/Follow Up Appt: Follow up with primary doctor within a week of discharge. Return to The Hospital For: Inability to keep down medications, severe shortness of breath, fever Activity & Diet Discharge Diet: JOHN Argueta MD August 26, 2021 11:02
--- NOTE | 2021-08-26 11:03 | Discharge Summary ---
Discharge Summary Hospital Course Problems/Diagnosis: (1) COPD with exacerbation Status: Resolved Resolution Date/Time: 08/26/21 @ 13:27 Assessment & Plan: Clinical picture consistent with COPD exacerbation, although he denies history of diagnosis of COPD. He is a never smoker but with significant second hand smoke. Given never smoker status will check alpha 1 antitrypsin as he had findings of moderate obstruction prior to his COVID infection and has no history of childhood asthma. -Duonebs, solumedrol 08/25- change to oral prednisone, home O2 study 08/26- required 1 lpm supplemental oxygen with exertion. Alpha 1 antitrypsin normal, prescribed umeclidinium and albuterol on d/c, discussed following up for PFT when acute episode improved. (2) Diabetes mellitus, type 2 Status: Chronic Assessment & Plan: Resume home metformin, diabetic diet, sliding scale insulin Qualifiers: Qualified Codes: E11.65 - Type 2 diabetes mellitus with hyperglycemia (3) Hypertension Status: Chronic Assessment & Plan: Resume home medications Qualifiers: Qualified Codes: I10 - Essential (primary) hypertension (4) Hyperlipidemia Status: Chronic Assessment & Plan: Continue home statin Hospital Course Date of Admission: August 24, 2021 at 12:05 Admission Diagnosis : Family Physician/Provider: Sunny Gallardo Date of Discharge: 08/26/21 Discharge Diagnosis: See problem list Hospital Course: See problem list Labs and Pending Lab Test: Microbiology 08/24/21 Blood Culture - Preliminary, Resulted No growth Home Meds Active Proair Hfa (Albuterol Sulfate) 1 Puff Puff 2 Puff IH Q4H PRN 1 PUFF = 90 MCG Incruse Ellipta (Umeclidinium [place]) 62.5 Mcg/Actuation Blst.w.dev 62.5 Mcg IH DAILY Prednisone 20 Mg Tab 40 Mg PO DAILY@0700 Reported Flonase Allergy Relief (Fluticasone Propionate) 50 Mcg/Actuation [place].susp 1 [place] NS DAILY Metformin HCl 1,000 Mg Tablet 1,000 Mg PO HS Cetirizine HCl 10 Mg Tablet 10 Mg PO HS Simvastatin 40 Mg Tablet 40 Mg PO HS Metoprolol Succinate 50 Mg Tab.er.24h 50 Mg PO HS Aspirin EC (Aspirin) 81 Mg Tablet.dr 81 Mg PO HS Assessment/Pt DC Instructions Follow up with primary provider within a week of discharge. Discharge Diet: ADA Diet Activity as Tolerated: Yes Discharge Physical Examination Allergies: Coded Allergies: No Known Drug Allergies (Unverified , 10/07/08) General Appearance: No Apparent Distress Respiratory: Normal Breath Sounds, Wheezing (faint end expiratory) Cardiovascular: Regular Rate, Rhythm, No Murmur Extremity: No Pedal Edema Skin: Normal Color, Warm/Dry Neurologic/Psychiatric: Alert, No Motor/Sensory Deficits JOHN MAST MD August 26, 2021 11:03
[2021-08-26 12:06] VITALS: BP 137/76
[2021-08-26] MEDS ORDERED: meTOproloL SUCCINATE 50 MG (TOPROL XL) TAB PO SCH (21:00)
[2021-08-26] MEDS ORDERED: SIMvastatin 40 MG (ZOCOR) TAB PO SCH (21:00)
== END 2021-08-26 12:50 | disposition home or self-care (01) ==
LOC: EDUNIT# 09:59 → ER 10:02 → UNDOADMOB 12:05 → 4TH 12:05 → UNDODISOB 08-26 12:50
PROVIDERS: ADMIT Family Medicine; ATTEND Family Medicine
DX: J44.1 Chronic obstructive pulmonary disease with (acute) exacerbation (principal); U09.9 Post COVID-19 condition, unspecified; J96.21 Acute and chronic respiratory failure with hypoxia; J96.22 Acute and chronic respiratory failure with hypercapnia; I10 Essential (primary) hypertension; E11.9 Type 2 diabetes mellitus without complications; E78.5 Hyperlipidemia, unspecified; Z79.84 Long term (current) use of oral hypoglycemic drugs; Z79.899 Other long term (current) drug therapy
CPT/HCPCS: 71045 ×2; 80048; 80053; 82103; 82805; 83605; 83880; 84484; 85007; 85025; 85027; 86141; 87040; 87636; 93005; 94640 ×3; 94660 ×3; 94761; 96360; 96361 ×2; 96376 ×2; 99284; G0378; 36415

== ENCOUNTER 2022-05-11 15:44 | Emergency (ER) | payer MEDICARE ==
[~2022-05-11] VITALS: Ht 175 cm; Wt 102.1 kg
[~2022-05-11 15:44] MED LIST changes: +ALBU8.5H6 IH; +CETI10TA17 PO; +FLUT9.9S NS; +METF-399 PO; +PRD20T PO; +UMEC62.5 IH
[2022-05-11 15:53] VITALS: BP 180/95
[2022-05-11] MEDS ORDERED: RT-ALBUTEROL/IPRATROPIUM 3 ML (DUONEB) VIAL INH ONE (16:00)
--- NOTE | 2022-05-11 16:18 | Diagnostic Imaging Report ---
INDICATION: Productive cough. TECHNIQUE: AP view of the chest is obtained with comparison made to study of 08/25/2021. FINDINGS: Heart size and pulmonary vascularity are within normal limits, and the lungs are clear, bilaterally. IMPRESSION: Unremarkable chest. Dictated by: Dictated on workstation # [id number]
[2022-05-11] MEDS ORDERED: predniSONE 20 MG TAB PO ONE (16:45)
--- NOTE | 2022-05-11 16:50 | ED Cough/URI ---
General Chief Complaint: Cough/Cold/Flu Symptoms Stated Complaint: COUGH, FEVER, CONGESTION Nursing Triage Note: PT AMB TO RM 6 WITH C/O COUGH X10 DAYS WITHOUT RELIEF FROM OTC MEDS Source: patient Exam Limitations: no limitations History of Present Illness Date Seen by Provider: May 11, 2022 Time Seen by Provider: 15:55 Allergies and Home Medications Allergies Coded Allergies: No Known Drug Allergies (Unverified , 10/07/08) Patient Home Medication List Home Medication List Reviewed: Yes Albuterol Sulfate (Ventolin Hfa) 1 Puff Puff, 2 PUFF IH Q4H PRN for SHORTNESS OF BREATH Prescribed by: JOHN MAST on 08/26/21 0723 Aspirin (Aspirin EC) 81 Mg Tablet.dr, 81 MG PO HS, (Reported) Entered as Reported by: ELYSSA MCCORD on 05/10/17 0832 Cetirizine HCl (Cetirizine HCl) 10 Mg Tablet, 10 MG PO HS, (Reported) Entered as Reported by: JOHN MAST on 08/24/21 1418 Fluticasone Propionate (Flonase Allergy Relief) 50 Mcg/Actuation [place].susp, 1 SPRAY NS DAILY, (Reported) Entered as Reported by: LELA HOLM on 08/25/21 1102 Metformin HCl (Metformin HCl) 1,000 Mg Tablet, 1,000 MG PO HS, (Reported) Entered as Reported by: JOHN MAST on 08/24/21 1418 Metoprolol Succinate (Metoprolol Succinate) 50 Mg Tab.er.24h, 50 MG PO HS, (Reported) Entered as Reported by: ELYSSA MCCORD on 05/10/17 0832 Prednisone (Prednisone) 20 Mg Tab, 40 MG PO DAILY@0700 Prescribed by: JOHN MAST on 08/26/21 0722 Simvastatin (Simvastatin) 40 Mg Tablet, 40 MG PO HS, (Reported) Entered as Reported by: ELYSSA MCCORD on 05/10/17 0832 Umeclidinium Agate (Incruse Ellipta) 62.5 Mcg/Actuation Blst.w.dev, 62.5 MCG IH DAILY Prescribed by: JOHN MAST on 08/26/21 0723 Review of Systems Review of Systems Constitutional: no symptoms reported EENTM: no symptoms reported Respiratory: see HPI, cough, short of breath Cardiovascular: no symptoms reported Gastrointestinal: no symptoms reported Genitourinary: no symptoms reported Musculoskeletal: no symptoms reported Skin: no symptoms reported Psychiatric/Neurological: No Symptoms Reported Hematologic/Lymphatic: No Symptoms Reported Immunological/Allergic: no symptoms reported Past Qoeirty-Svdgvo-Xdbjsd Hx Patient Social History Tobacco Use?: No Use of E-Cig and/or Vaping dev: No Substance use?: No Alcohol Use?: No Pt feels they are or have been: No Immunizations Up To Date Tetanus Booster (TDap): Unknown PED Vaccines UTD: No Influenza Vaccine Up-to-Date: Yes; Up-to-Date First/Initial COVID19 Vaccinat: 07/23/20 Second COVID19 Vaccination Glynn: 10/21/20 Third COVID19 Vaccination Date: 02/27/21 Seasonal Allergies Seasonal Allergies: No Past Medical History Surgery/Hospitalization HX: AAA, HTN, HLD, COPD APPY Surgeries: Yes Adenoidectomy, Appendectomy, Coronary Stent, Tonsillectomy Respiratory: No Cardiac: Yes (CARDIAC CATH) Hypertension Neurological: No Reproductive Disorders: No Genitourinary: No Gastrointestinal: No Musculoskeletal: No Endocrine: Yes Diabetes, Non-Insulin dep HEENT: No Cancer: No Psychosocial: No Integumentary: No (MULTIPLE FATTY TUMORS) Blood Disorders: No Family Medical History Cardiovascular disease 19 FATHER Diabetes mellitus G8 SISTER G8 SISTER G8 SISTER FH: breast cancer 19 MOTHER Hypertension G8 SISTER Physical Exam Vital Signs - First Documented 05/11/22 05/11/22 15:53 16:28 Temp 37.0 Pulse 92 Resp 22 B/P (MAP) 180/95 (123) Pulse Ox 94 O2 Delivery Room Air Capillary Refill : Height: 5'9.00" Weight: 225lbs. 0.0oz. 102.628129vy; 33.00 BMI Method:Stated General Appearance: WD/WN, no apparent distress HEENT: PERRL/EOMI, normal ENT inspection, TMs normal, pharynx normal Neck: non-tender, full range of motion, supple, normal inspection Respiratory: chest non-tender, lungs clear, normal breath sounds, no respiratory distress, no accessory muscle use Cardiovascular: regular rate, rhythm Gastrointestinal: normal bowel sounds, non tender, soft Extremities: normal range of motion, non-tender Neurologic/Psychiatric: no motor/sensory deficits, alert, normal mood/affect, oriented x 3 Skin: normal color, warm/dry Progress/Results/Core Measures Suspected Sepsis SIRS Temperature: Pulse: 92 Respiratory Rate: 22 Blood Pressure 180 /95 Mean: 123 Results/Orders Lab Results Laboratory Tests Test 05/11/22 16:05 Range/Units Influenza Type A (RT-PCR) Not Detected Not Detecte Influenza Type B (RT-PCR) Not Detected Not Detecte SARS-CoV-2 RNA (RT-PCR) Not Detected Not Detecte My Orders Orders - NATALI HAYES BODY BUILDER APPRENTICE Covid 19 Inhouse Test (05/11/22 15:59) Chest 1 View, Ap/Pa Only (05/11/22 15:59) Influenza A And B By Pcr (05/11/22 15:59) Isolation Central Supply Req (05/11/22 15:59) Albuterol/Ipra Inhalation Soln (Duoneb I (05/11/22 16:00) Svn Small Volume Nebulizer (05/11/22 15:59) Prednisone Tablet (Deltasone Tablet) (05/11/22 16:45) Medications Given in ED Current Medications Medications Dose Ordered Sig/Daniel Route Start Time Stop Time Status Last Admin Dose Admin Albuterol/ Ipratropium 3 ml ONCE ONCE INH 05/11/22 16:00 05/11/22 16:01 DC 05/11/22 16:27 3 ML Vital Signs/I&O 05/11/22 05/11/22 15:53 16:28 Temp 37.0 Pulse 92 Resp 22 B/P (MAP) 180/95 (123) Pulse Ox 94 O2 Delivery Room Air Capillary Refill : Blood Pressure Mean: 123 Progress Note : Progress Note Patient is nontoxic and well-hydrated on exam. Patient does have some mild t achypnea noted on initial exam. There was also some mild expiratory wheezing. Patient does have a nonproductive cough. Vital signs are otherwise reassuring. Orders placed for chest x-ray and rapid flu/COVID test. Patient was also given a DuoNeb and oral dose of prednisone. Chest x-ray is acutely negative for any acute findings. Rapid flu and COVID tests are negative. Patient appears to be having a COPD exacerbation. He had some improvement after the DuoNeb. He was coughing much less frequently and his wheezing was improved as well as his tachypnea. Patient does not require any oxygen at this time and seems stable to be discharged home. Patient will be discharged home with a prescription for an additional 4 days of prednisone. He has a nebulizer at home as well as a albuterol MDI. He was told to use 1 or the other every 4 hours for the next 24 hours. I will give him a prescription for more albuterol nebulizer fluid as he states he only has 6-7 more doses at home. Discussed importance of close follow-up with PCP. Strict return precautions for urgent symptomology discussed. Patient verbalized understanding. Departure Impression Primary Impression: COPD with acute exacerbation Disposition: HOME, SELF-CARE Condition: Stable Departure-Patient Inst. Decision time for Depature: 16:50 Referrals: [facility] (PCP) Primary Care Physician IVETTE THORNTON (Family) Primary Care Physician Patient Instructions: COPD Exacerbation, Adult ED Scripts Albuterol Sulfate (Albuterol Sulfate) 2.5 Mg/3 Ml (0.083 %) Vial.neb 2.5 MG INH Q4H PRN for WHEEZING, #30 EA 0 Refills Prov: NATALI HAYES APRN 05/11/22 Prednisone (Prednisone) 20 Mg Tab 40 MG PO DAILY for 4 Days, #8 TAB 0 Refills Prov: NATALI HAYES APRN 05/11/22 NATALI HAYES APRN May 11, 2022 16:50
[2022-05-11] MEDS ORDERED: PRD20T PO (16:51)
[2022-05-11] MEDS ORDERED: ALBU2.5V4 INH (16:51)
== END 2022-05-11 17:12 | disposition home or self-care (01) ==
LOC: EDUNIT# 15:44 → ER 15:46
DX: J44.1 Chronic obstructive pulmonary disease with (acute) exacerbation (principal); Z20.822 Contact with and (suspected) exposure to COVID-19
CPT/HCPCS: 71045; 87636; 94640

== ENCOUNTER → 2022-05-31 | Outpatient (CLI) | payer MEDICARE ==
[~2022-05-31] MED LIST changes: +ALBU2.5V4 INH
== END ==
LOC: CARD 13:23
PROVIDERS: ATTEND Internal Medicine Cardiovascular Disease
DX: I11.9 Hypertensive heart disease without heart failure (principal); I25.10 Atherosclerotic heart disease of native coronary artery without angina pectoris
CPT/HCPCS: 93306

== ENCOUNTER → 2022-06-01 | Outpatient (CLI) | payer MEDICARE ==
[~2022-06-01] MED LIST changes: +HOLD METFORMIN - RECEIVED CONTRAST 20 ML VIAL IV SCH; +IOHEXOL 350 MG/ML 100 ML (OMNIPAQUE 350) VIAL IV ONE; +NS 100 ML (IVPB) BAG IV ONE
[2022-06-01 09:52] LABS: CREATININE SERUM 0.79 MG/DL (0.60-1.30)
--- NOTE | 2022-06-01 11:21 | Diagnostic Imaging Report ---
INDICATION: Shortness of breath TECHNIQUE: Multiple contiguous axial images were obtained through the chest after uneventful bolus administration of intravenous contrast. 3D reconstructed CTA MIP acquisitions were also performed. Auto Exposure Controls were utilized during the CT exam to meet ALARA standards for radiation dose reduction. Comparison made with 08/02/2020. While the bolus timing is somewhat suboptimal, no definite pulmonary arterial filling defects are visualized. The ascending aorta measures approximately 4.5 cm, stable compared to the previous study. There is no aortic dissection. Great vessel origins are patent and without stenosis. Aortic arch and descending aorta are normal in caliber. There are no enlarged mediastinal or hilar nodes. There are no enlarged axillary nodes or chest wall lesions. There is no pleural or pericardial fluid. Visualized portions of the upper abdomen were unremarkable. Lung windows demonstrate some linear scarring in the lingular region. There is no consolidation or nodular lesion. Groundglass infiltrate in the right base in the previous study has resolved. IMPRESSION: Limited study with no CT evidence of pulmonary emboli. Stable ascending aortic aneurysm measuring 4.5 cm. No acute process in the chest. Resolution of previous infiltrates compared to 08/02/2020. Dictated by: Dictated on workstation # [id number]
== END ==
LOC: RAD 09:45
PROVIDERS: ATTEND Internal Medicine Cardiovascular Disease
DX: I71.20 Thoracic aortic aneurysm, without rupture, unspecified (principal)
CPT/HCPCS: 36415; 71275; 82565; 84520

== ENCOUNTER → 2022-07-05 | Outpatient (CLI) | payer MEDICARE ==
[~2022-07-05] MED LIST changes: +CATHETER FLUSH 10 ML SYR IVP PRN; -HOLD METFORMIN - RECEIVED CONTRAST 20 ML VIAL IV SCH; -IOHEXOL 350 MG/ML 100 ML (OMNIPAQUE 350) VIAL IV ONE; -NS 100 ML (IVPB) BAG IV ONE; +REGADENOSON 0.4 MG/5 ML SYR (LEXISCAN) IV ONE
[2022-07-05 09:06] VITALS: BP 187/94
[2022-07-05 09:14] VITALS: BP 222/111
--- NOTE | 2022-07-05 10:35 | Cardiology Stress Test Report ---
Stress Test Report Date of Procedure/Referring: Date of Procedure: Jul 05, 2022 [facility] Admitting Physician Admitting Physician: Attending Physician: Jessenia Ruiz MD Baseline Heart Rate: 74 Baseline Blood Pressure: Blood Pressure Systolic: 222 Blood Pressure Diastolic: 111 Baseline Vitals Vital Signs Date Time Temp Pulse Resp B/P (MAP) Pulse Ox O2 Delivery O2 Flow Rate FiO2 07/05/22 09:06 74 187/94 (125) Baseline EKG: Baseline EKG: NSR Summary After explaining the procedure to the patient, he signed a consent and then brought to the stress nuclear laboratory. Patient received 0.4 mg Lexiscan for stress test, ECG, heart rate and blood pressure were monitored continuously. Resting and stress dose of radio tracer were injected, imaging was acquired and reviewed in short axis, horizontal long axis and vertical long axis views. TID: 1.06 SSS: 12 SDS: 0 EF: 56 Patient tolerated Lexiscan well Diaphragmatic attenuation with fixed defect involving the mid to apical inferior wall and inferior apex with no significant ischemia Normal left ventricular size, hypokinesia at the inferoapical segment, ejection fraction 56% Copy Copies To 1: [facility]/ JESSENIA RUIZ MD Jul 05, 2022 10:35
== END ==
LOC: CARD 07:45
PROVIDERS: ATTEND Internal Medicine Cardiovascular Disease
DX: I11.9 Hypertensive heart disease without heart failure (principal); J98.6 Disorders of diaphragm
CPT/HCPCS: 78452; 93017; A9502